=== PATIENT | female | born 1960 | race Caucasian/White ===

== ENCOUNTER → 2019-11-19 15:07 | Outpatient (BNVA) | payer OTHER, SELFPAY | PROVIDERS: Family Provider Family Medicine; PCP Family Medicine; Visit Provider Family Medicine | DX: I10 Essential (primary) hypertension (principal); M79.641 Pain in right hand; M79.642 Pain in left hand; G89.4 Chronic pain syndrome; E78.2 Mixed hyperlipidemia; J44.9 Chronic obstructive pulmonary disease, unspecified; F51.01 Primary insomnia; G60.9 Hereditary and idiopathic neuropathy, unspecified | CPT/HCPCS: 80053; 80061; 85025; 85651; 86140 ==

== ENCOUNTER 2021-03-12 13:23 | Outpatient (CLI) | payer OTHER, SELFPAY ==
--- NOTE | 2021-03-12 13:45 | MR_ITS ---
WS: [id number] MRI LUMBAR SPINE NONCONTRAST TECHNIQUE: Sagittal T1, T2 and STIR imaging. Axial T1 and T2 imaging. CLINICAL INFORMATION: ACUTE L SIDED LBP W R SIDED SCIATICA COMPARISON: None. FINDINGS: Mild lumbar curve. No acute compression. Slight anterolisthesis L4 on L5. Mild disc bulging L4-5. L1-L2: Normal. L2-L3: Mild annular bulging. Narrowing of the subarticular recess bilaterally. Moderate facet arthrop athy. Spinal canal and foramen are patent. L3-L4: Mild annular bulging. Mild central canal stenosis. Narrowing subarticular recess bilaterally. Mild right and no significant left foraminal narrowing. Moderate facet arthropathy. L4-L5: Grade 1 anterolisthesis L4 on L5. Shallow disc bulging with moderate to severe central canal s tenosis. Impingement traversing L5 nerve roots bilaterally. Moderate to advanced facet arthropathy. M oderate left and mild right foraminal narrowing. L5-S1: Minimal annular bulging. Spinal canal and foramen are patent. Moderate facet arthropathy. Atheromatous disease infrarenal abdominal aorta. Small right renal cyst MR/MR lumbar spine wo con* [id number] IMPRESSION: 1. Mild lumbar curve. No acute compression. 2. Moderate to severe spinal canal narrowing L4-5 due to disc bulging with fac et arthropathy and ligamentum flavum hypertrophy. Impingement on the traversing L5 nerve roots bilaterally. 3. Mild central canal stenosis L3-4. 4. Mild right L3-4 and moderate left L4-5 foraminal narrowing.
== END 2021-03-12 13:24 | disposition home or self-care (01) ==
PROVIDERS: PCP Family Medicine; Visit Provider Family Medicine
DX: M54.41 Lumbago with sciatica, right side (principal); M48.061 Spinal stenosis, lumbar region without neurogenic claudication
CPT/HCPCS: 72148

== ENCOUNTER 2021-03-14 16:13 | Emergency (ER) | payer OTHER, SELFPAY ==
[2021-03-14 16:29] VITALS: BP 173/82; PULSE 94; RESP 16; TEMP 36.6; O2SAT 95; BMI 33.3
[2021-03-14 17:14] VITALS: BP 147/99; PULSE 90; RESP 20; O2SAT 94
--- NOTE | 2021-03-14 17:22 | W.ED.BACK ---
HPI - Back Pain/Injury General: Chief Complaint: Extremity Problem,Nontraumatic Stated Complaint: LOWER R. ABD/BACK PAIN Time Seen by Provider: 03/14/21 17:04 Source: patient Mode of arrival: ambulatory Limitations: no limitations History of Present Illness: HPI Narrative: Patient is a 60-year-old female who presents to ED today for evaluation of lower back pain. Patient tells me pain has been present at least over the past 2 months. She has received XRs and an MRI through her PCP Dr. Mariano. She states MRI was completed on Monday and has not had a follow-up appointment following the imaging. She states pain continues and is now starting to radiate down her right lower extremity. She reports some burning to her right lower abdomen and groin. Patient denies urinary symptoms. She is not having any issues with urinary retention or bowel incontinence. She has not noticed any nausea/vomiting or changes in bowel movements. No fevers. She denies numbness, tingling, loss of sensation to her lower extremity. No color/temperature changes to the extremity. No weakness or trouble with ambulation. Pain seems to be worse with movement and improved with rest. Results of recent MRI are printed below: MR/MR lumbar spine wo con* [id number] IMPRESSION: 1. Mild lumbar curve. No acute compression. 2. Moderate to severe spinal canal narrowing L4-5 due to disc bulging with facet arthropathy and ligamentum flavum hypertrophy. Impingement on the traversing L5 nerve roots bilaterally. 3. Mild central canal stenosis L3-4. 4. Mild right L3-4 and moderate left L4-5 foraminal narrowing. MD elicited complaint: back pain Onset (ago): month(s) (approximately 2 mo ago) Timing: constant Quality: burning Location: lumbar spine and right lower back Radiation: right upper leg Exacerbating factors: movement Associated symptoms: Deny abdominal pain, chills, difficulty walking, dysuria, fatigue, fever(s), nausea, urinary urgency or vomiting Work related injury: No Review of Systems Const: Denies: fever(s), chills, body aches, fatigue or malaise Card: Denies: chest pain Resp: Denies: dyspnea GI: Denies: abdominal pain, nausea, vomiting, diarrhea or change in stool character : Denies: flank pain, difficulty voiding, dysuria, urinary frequency, urinary urgency or urinary hesitancy Musc: Reports: back pain; Denies: neck pain, extremity pain, extremity swelling, joint pain, joint swelling, joint redness, joint warmth, joint stiffness or limited range of motion Skin/Breast: Denies: rash Neuro: Denies: headache(s), numbness in extremities, weakness in extremities, sensory changes, difficulty walking or dizziness PFSH ED PFSH: Medical History Bilateral hand pain Chronic left upper quadrant pain Chronic pain syndrome Chronic right lower quadrant pain Essential (primary) hypertension Hyperlipidemia, unspecified Insomnia, unspecified Peripheral neuropathy, idiopathic Tobacco use Surgical History (Updated 11/19/19 @ 14:39 by Selina Webb MD) H/O oophorectomy S/P knee surgery LEFT S/P shoulder surgery LEFT X2 RIGHT X1 Family History (Updated 11/19/19 @ 10:03 by Nabila Velasco LPN) Mother Diabetes Anesthesia complication Hypertension Brother Diabetes Cancer LUNG AND KIDNEY Father Cancer Social History (Updated 11/19/19 @ 10:08 by Nabila Velasco LPN) Smoking and tobacco status: current every day smoker cigarettes Packs smoked per day: 1 Quit status (tobacco): not considering quitting Second hand smoke exposure: No Smoking risk assessment/counseling performed?: No Alcohol intake: never Desire information about alcohol rehabilitation?: No Counseling given: No Desire information about substance/drug rehabilitation?: No Counseling given: No Physical Exam Const: COMMON NORMALS: no acute distress, patient oriented x3, no limitations and alert GENERAL APPEARANCE: cooperative NUTRITIONAL APPEARANCE: overweight ORIENTATION/CONSCIOUSNESS: Yes awake, Yes oriented to person, Yes oriented to place and Yes oriented to time HENMT: COMMON NORMALS: normocephalic and atraumatic HEAD & SCALP: normocephalic and atraumatic Resp: COMMON NORMALS: normal respiratory effort and clear to auscultation bilaterally AUSCULTATION: clear to auscultation bilaterally Cardio: COMMON NORMALS: regular rate and regular rhythm RATE: regular rate RHYTHM: regular rhythm Back/Pelvis: THORACIC SPINE/UPPER BACK: Yes thoracic ROM normal, No thoracic spinal tenderness and No paraspinal muscle tenderness LUMBAR SPINE/LOWER BACK: Yes lumbar ROM normal, Yes pain with ROM, Yes paraspinal muscle tenderness (across lower back), No paraspinal muscle spasm and Yes straight leg raise negative bilaterally PELVIS: Yes buttocks normal and Yes sciatic notch tenderness on the right Extremity: COMMON NORMALS: normal to inspection and full ROM GENERAL: Yes normal exam except as noted Neuro: COMMON NORMALS: patient oriented x3, moves all extremities, no focal motor deficits, no sensory deficits noted and gait normal SENSORIUM/ORIENTATION: Yes alert, Yes oriented to person, Yes oriented to place and Yes oriented to time MOTOR EXAM: 5/5 motor strength present throughout Skin: COMMON NORMALS: no rashes or lesions noted GENERAL SKIN EXAM: no rashes or lesions noted Course Vital Signs: Vital signs: Vital Signs Temperature 97.9 F 03/14/21 16:29 Pulse Rate 90 03/14/21 17:14 Respiratory Rate 16 03/14/21 18:16 Blood Pressure 156/91 03/14/21 18:16 Pulse Oximetry 94 03/14/21 17:14 MDM - Back Pain/Injury MDM Narrative: Medical decision making narrative: Symptoms present for the past two months. No neurological deficits noted on exam. Recommend follow up with PCP for discussion and plan in regards to her MRI. She is on Baclofen already. States she cannot take steroids because her hazmat truck driver advised against it. Will place on diclofenac. Discussed possible physical therapy for back strengthening as well as possible referrals to pain management and possibly ortho/spine. Return to ED precautions given. Lab Data: Attestation: I reviewed the patient's lab results. Labs: Lab Results 03/14/21 Range/Units 17:34 Urine Color Straw (Yellow) Urine Appearance Clear (CLEAR) Urine pH 5 (5-7) Ur Specific Gravit y 1.015 (1.005-1.030) Urine Protein Neg (Negative) Urine Glucose (UA) Norm (Normal) Urine Ketones Negative (Negative) Urine Blood Neg (Negative) Urine Nitrate Negative (Negative) Urine Bilirubin Neg (Negative) Urine Urobilinogen Norm (Negative) mg/dL Ur Leukocyte Philomena ase Negative (Negative) Discharge Plan Discharge Patient Disposition: Home Clinical Impression: L4-L5 disc bulge Condition: Stable Prescriptions: New diclofenac sodium 50 mg tablet,delayed release (DR/EC) 50 mg PO Q12H PRN (Reason: pain) Qty: 20 RF: 0 Discontinued aspirin 325 mg Tablet 325 mg PO Q6H PRN (Reason: PAIN/HEADACHES) RF: 0 ibuprofen [Advil] 200 mg Tablet 200 - 400 mg PO Q6H PRN (Reason: Pain) RF: 0 No Action amlodipine [Norvasc] 5 mg tablet 5 mg PO DAILY RF: 0 fenofibrate nanocrystallized 145 mg tablet 145 mg PO DAILY RF: 0 amitriptyline 50 mg tablet 100 mg PO DAILY RF: 0 baclofen 20 mg tablet 40 mg PO DAILY RF: 0 zolpidem 10 mg tablet 10 mg PO BEDTIME RF: 0 hydrochlorothiazide 25 mg tablet 25 mg PO DAILY RF: 0 losartan 100 mg tablet 100 mg PO DAILY RF: 0 Discharge Orders: Discharge ED (Routine); Ordered 03/14/21 Ordered By: Maryana Meeks Referrals: Tracey Mariano, [Primary Care Provider] - Activity Restrictions/Additional Instructions: Continue taking the Baclofen as prescribed. I have written you for a prescription for anti-inflammatory medications. Do not take this medication with other [id number] medication such as Advil/Motrin/Ibuprofen, Aleve/Naprosyn, or Aspirin. Please contact your primary care provider to go over results of your MRI. We have discussed options such as physical therapy or a referral to pain management or evaluation by Dr. Liu. Coding Level of Care Code ED Tennis Racket Repairer for Chg Fwd Exam Comprehensive
[2021-03-14 17:41] LABS: Add Urine Microscopic? NO; Charge for UA Resulting for Rev
[2021-03-14 17:46] LABS: Bilirubin Urine Neg (Negative); Blood Urine Neg (Negative); Glucose Urine UA Norm (Normal); Ketones Urine Negative (Negative); Leukocyte Esterase Urine Negative (Negative); Nitrate Urine Negative (Negative); Protein Urine Neg (Negative); Specific Gravity, Urine 1.015 (1.005-1.030); Urine Appearance Clear (CLEAR); Urine Color Straw (Yellow); Urobilinogen Urine Norm (Negative); pH Urine 5 (5-7)
[2021-03-14 18:16] VITALS: BP 156/91; RESP 16
== END 2021-03-14 18:22 | disposition home or self-care (01) ==
PROVIDERS: Emergency Provider Physician Assistant; PCP Family Medicine
DX: M51.26 Other intervertebral disc displacement, lumbar region (principal); I10 Essential (primary) hypertension; E78.5 Hyperlipidemia, unspecified; F17.210 Nicotine dependence, cigarettes, uncomplicated
CPT/HCPCS: 81003; 99282

== ENCOUNTER 2021-07-29 12:48 | Outpatient (CLI) | payer OTHER, SELFPAY ==
--- NOTE | 2021-07-29 13:03 | MM_ITS ---
WS: [id number] BILATERAL SCREENING DIGITAL MAMMOGRAM WITH CAD HISTORY: Screening exam. COMPARISON: 10/30/2019 Bilateral CC and MLO views submitted. Computer aided detection analyzed. Breast composition: There are scattered areas of fibroglandular density. No suspicious masses, microc alcifications or architectural distortion. Benign bilateral scattered calcifications. MM/[place] [id number] IMPRESSION: BI-RADS: 2-Benign FOLLOW UP: 1 Year Follow-up
== END 2021-07-29 12:49 | disposition home or self-care (01) ==
LOC: RADSHAW 12:53
PROVIDERS: PCP Family Medicine; Visit Provider Registered Nurse
DX: Z12.31 Encounter for screening mammogram for malignant neoplasm of breast (principal)
CPT/HCPCS: 77067

== ENCOUNTER → 2021-08-13 10:27 | Outpatient (BNVA) | payer OTHER, SELFPAY | PROVIDERS: PCP Family Medicine; Referring Provider Emergency Medicine; Visit Provider Podiatrist Foot & Ankle Surgery | DX: M79.673 Pain in unspecified foot (principal); S92.343D Displaced fracture of fourth metatarsal bone, unspecified foot, subsequent encounter for fracture with routine healing; X58.XXXD Exposure to other specified factors, subsequent encounter | CPT/HCPCS: 73620; 73630 ==

== ENCOUNTER 2022-01-22 02:38 | Inpatient (IN) | payer BC, SELFPAY ==
[2022-01-22] VITALS (14 sets, daily range): BP systolic 132–218; BP diastolic 73–114; PULSE 78–107; RESP 16–21; TEMP 36.5–37.1; O2SAT 92–98; BMI 33.3
--- NOTE | 2022-01-22 03:10 | CTR_ITS ---
PROCEDURE INFORMATION: Exam: CT Head Without Contrast Exam date and time: 01/22/2022 3:10 AM Age: 61 years old Clinical indication: Altered mental status/memory loss; Patient HX: AMS. Patient's states she is acting more and more confused over past couple of days. Patient appears confused and making contradictory statements. ; Additional info: Symptoms of acute stroke TECHNIQUE: Imaging protocol: Computed tomography of the head without contrast. Radiation optimization: All CT scans at this facility use at least one of these dose optimization techniques: automated exposure control; mA and/or kV adjustment per patient size (includes targeted exams where dose is matched to clinical indication); or iterative reconstruction. COMPARISON: CR Cervical Spine AP/Lat* [id number] 10/30/2019 11:52 AM RADIATION DOSE METRICS: Total DLP (mGy-cm): 1658.68 FINDINGS: Brain: Normal. No hemorrhage. Unremarkable white matter. No mass effect. Cerebral ventricles: No ventriculomegaly. Paranasal sinuses: Visualized sinuses are unremarkable. No fluid levels. Mastoid air cells: Visualized mastoid air cells are well aerated. Vasculature: Severe calcified intracranial atherosclerotic vessel disease. Bones/joints: Unremarkable. No acute fracture. Soft tissues: Unremarkable. CT/CT head wo con* [id number] IMPRESSION: No acute intracranial findings.
--- NOTE | 2022-01-22 03:10 | ECG_ITS ---
[facility] Test Date: 2022-01-22 Pat Name: Katia Knott Department: Room: Gender: Female Administrative Director: : 1960 Requested By: José Antonio Schroeder Order Number: [id number] Stacy MD: Adolfo Belcher M.D. Measurements Intervals [place] Rate: 87 P: 59 KS: 138 QRS: 30 QRSD: 99 T: 50 QT: 353 QTc: 427 Interpretive Statements SINUS RHYTHM NONSPECIFIC T-WAVE ABNORMALITY Compared to ECG 08/04/2019 18:05:18 No significant changes Electronically Signed On 01-23-2022 15:46:31 CDT by Adolfo Belcher M.D. [email or web address] [id number]
--- NOTE | 2022-01-22 03:12 | XRR_ITS ---
PROCEDURE INFORMATION: Exam: XR Chest Exam date and time: 01/22/2022 3:12 AM Age: 61 years old Clinical indication: Patient HX: AMS. Patient states patient acting very confused past few days. TECHNIQUE: Imaging protocol: XR of the chest. Views: 1 view. COMPARISON: CR Chest 1 [place] [id number] 08/04/2019 7:19 PM FINDINGS: Lungs: Stable left discoid atelectasis and/or scarring. Pleural spaces: Unremarkable. No pleural effusion. No pneumothorax. Heart/Mediastinum: Unremarkable. No cardiomegaly. Bones/joints: Unremarkable. XR/XR chest 1V portable [id number] IMPRESSION: No acute findings.
[2022-01-22 03:21] LABS: Basophils % 0.4 %; Eosinophils # 0.1 10^3/uL (0.0-0.8); Eosinophils % 1.8 %; Hematocrit 43.1 % (37.0-47.0); Hemoglobin 14.1 g/dL (11.5-15.3); Lymphocytes # 1.7 10^3/uL (0.8-4.8); Lymphocytes % 22.9 %; Mean Corpuscular HGB Conc 32.7 g/dL (30.0-36.0); Mean Corpuscular Volume 88.7 fl (81-99); Monocytes # 0.5 10^3/uL (0.2-0.9); Monocytes % 7.1 %; Neutrophils # 4.96 10^3/uL (1.8-7.7); Neutrophils % 67.4 %; Nucleated Red Blood Cells % 0 %; Platelet Count 315 10^3/cmm (130-400); Red Blood Count 4.86 10^6/uL (4.1-5.3); Red Cell Distribution Width 12.7 % (12.1-15.1); White Blood Count 7.4 10^3/uL (4.0-10.0)
[2022-01-22 03:37] LABS: INR 0.97 (0.8-1.2); Partial Thromboplastin Time 26.3 SECONDS (23.9-36.7)
[2022-01-22 03:42] LABS: Alanine Aminotransferase 21 U/L (0-33); Albumin Level 4.7 g/dL (3.5-5.2); Alkaline Phosphatase 63 IU/L (35-105); Blood Urea Nitrogen 18 mg/dL (8-23); Calcium 9.1 mg/dL (8.5-10.5); Carbon Dioxide 27 mmol/L (22-29); Chloride 95 mmol/L (98-107); Globulin 3.4 g/dL (1.3-4.6); Glomerular Filtration Rate 72.7 mL/min (90-130); Glucose 176 mg/dL (65-115); Osmolality Calculated 284 mOsm/kg (285-295); Sodium 134 mmol/L (136-145); Total Bilirubin 0.2 mg/dL (0.15-1.2); Total Protein 8.1 g/dL (6.6-8.7)
[2022-01-22 03:44] LABS: Lactate (Lactic Acid level) 0.9 mmol/L (0.5-2.2)
[2022-01-22 03:46] LABS: Alcohol Level < 10 mg/dL (0-10); Anion Gap 16.4 (5-19); Aspartate Amino Transferase 17 U/L (0-32); Potassium 4.4 mmol/L (3.5-5.1)
--- NOTE | 2022-01-22 03:49 | W.ED.AMS ---
HPI - Altered Mental Status General: Chief Complaint: Altered Mental Status Stated Complaint: Possible Stoke\Not making Sense Time Seen by Provider: 01/22/22 02:56 History of Present Illness: 61-year-old female with a history of chronic back pain, peripheral neuropathy. She also has a history of peripheral vascular disease. She presents with at least 36 hours of confusion symptoms. state she was acting normally Monday night, and seemed normal morning but by the time he got home night, somewhere around 36 hours ago she seemed altered. She has had a history of this a couple of times, after taking too much medication. He thought that this was the case, but when symptoms continued into Monday and Monday night, decided she may need to be evaluated. She responds and answers simple questions. She is having trouble with language. She seems a bit weak, but not focally on one side. She was able to walk into the ER with minimal assistance. The patient herself is an unreliable historian at this point. does say that the patient recently started a new prescription sleep aid (Ambien) and she seems to have taken a months worth in 10 days, as the bottle is empty. MD complaint: altered mental status and confusion Onset (ago): hour(s) Timing confirmed by: spouse Severity: moderate Consistency of symptoms: Constant Context: change in medication Associated symptoms: Reports other Review of Systems General: Reports: ROS unobtainable due to mental status and Other (Hx taken from , and the patient at times) Const: Denies: fever(s) Eyes: Reports: change in vision Card: Denies: chest pain Resp: Denies: productive cough or non-productive cough GI: Denies: abdominal pain or vomiting Musc: Reports: back pain Neuro: Denies: headache(s) Psych: Reports: anxiety PFSH ED PFSH: Medical History Bilateral hand pain Chronic left upper quadrant pain Chronic pain syndrome Chronic right lower quadrant pain Essential (primary) hypertension Hyperlipidemia, unspecified Insomnia, unspecified Peripheral neuropathy, idiopathic PVD (peripheral vascular disease) Smoking Tobacco use Surgical History H/O oophorectomy S/P knee surgery LEFT S/P shoulder surgery LEFT X2 RIGHT X1 Family History Mother Diabetes Anesthesia complication Hypertension Brother Diabetes Cancer LUNG AND KIDNEY Father Cancer Social History (Updated 01/22/22 @ 04:06 by José Antonio Quintana DO) Quit status (tobacco): considering quitting Second hand smoke exposure: No Smoking risk assessment/counseling performed?: No Alcohol intake: never Desire information about alcohol rehabilitation?: No Counseling given: No Desire information about substance/drug rehabilitation?: No Counseling given: No Physical Exam Const: COMMON NORMALS: alert GENERAL APPEARANCE: well kempt, in distress, anxious and ill appearing NUTRITIONAL APPEARANCE: overweight ORIENTATION/CONSCIOUSNESS: Yes awake, Yes oriented to person and Yes confused; not oriented to place and not oriented to time HENMT: COMMON NORMALS: normocephalic and atraumatic HEAD & SCALP: normocephalic and atraumatic FACE & SINUS: normal facial exam Eye: COMMON NORMALS: Equal, round and reactive pupils present and EOMs intact bilaterally VISUAL ACUITY: Yes acuity normal PUPIL: Yes Equal, round and reactive pupils present Chest: COMMONS NORMALS: normal inspection of the chest Resp: COMMON NORMALS: normal respiratory effort, No use of accessory muscles and clear to auscultation bilaterally AUSCULTATION: clear to auscultation bilaterally Cardio: COMMON NORMALS: regular rate and regular rhythm RATE: regular rate RHYTHM: regular rhythm GI: COMMON NORMALS: Normal to inspection, nondistended, normoactive bowel sounds present Neuro: DOMINGUEZ COMA SCALE: document GCS findings [place] coma scale eye opening: Spontaneous Dominguez coma scale verbal response: Confused Dominguez coma scale motor response: Obey commands Dominguez coma scale total score: 14 SENSORIUM/ORIENTATION: Yes alert, Yes oriented to person, No oriented to place and No oriented to time CRANIAL NERVES: Yes CN normal except as noted COORDINATION/BALANCE: somlcw-wu-crrn test normal MOTOR EXAM: Pronator motor function not present COORDINATION: omhtal-xm-lbvn test normal Psych: COMMON NORMALS: cooperative (only partially) APPEARANCE: Yes well kempt Course Consultations: Consultation #1: laurie Time: 04:27 Vital Signs: Vital signs: Vital Signs Temperature 97.7 F 01/22/22 02:45 Pulse Rate 79 01/22/22 04:39 Respiratory Rate 18 01/22/22 04:39 Blood Pressure 178/98 01/22/22 04:39 Pulse Oximetry 98 01/22/22 04:39 MDM - Altered Mental Status Medical Decision Making 61-year-old female with significant altered mental status. She is following commands at this point, but is still not able to give a history. Her neurological exam is completely nonfocal in terms of a localized stroke, although she exhibits significant expressive aphasia. Her laboratory is essentially benign. Her urinalysis does not show urinary tract infection. Tox screen is negative. Alcohol is negative. Head CT is nonacute. At the top of the differential would be zolpidem overdose, whether unintentional or intentional versus other metabolic encephalopathy versus acute stroke not showing up on CT. Patient is not a candidate for TPA given time of onset. She was extremely hypertensive on arrival, which is improving, after IV labetalol. Spoke with the hospitalist. She will be observed, given IV fluid hydration, and MRI will be scheduled for later today Lab Data : 01/22/22 03:15 01/22/22 03:[address] 01/22/22 03:10 IMPRESSION: No acute intracranial findings. Chest X-Ray 01/22/22 03:12 IMPRESSION: No acute findings. Laboratory Results WBC 7.4 10^3/uL (4.0-10.0) 01/22/22 03:15 RBC 4.86 10^6/uL (4.1-5.3) 01/22/22 03:15 Hgb 14.1 g/dL (11.5-15.3) 01/22/22 03:15 Hct 43.1 % (37.0-47.0) 01/22/22 03:15 MCV 88.7 fl (81-99) 01/22/22 03:15 MCH 29.0 pg (28.0-34.0) 01/22/22 03:15 MCHC 32.7 g/dL (30.0-36.0) 01/22/22 03:15 RDW 12.7 % (12.1-15.1) 01/22/22 03:15 Plt Count 315 10^3/cmm (130-400) 01/22/22 03:15 MPV 10.0 fL (7.4-10.4) 01/22/22 03:15 Neut % (Auto) 67.4 % 01/22/22 03:15 Lymph % (Auto) 22.9 % 01/22/22 03:15 [place] % (Auto) 7.1 % 01/22/22 03:15 Eos % (Auto) 1.8 % 01/22/22 03:15 Baso % (Auto) 0.4 % 01/22/22 03:15 Neut # (Auto) 4.96 10^3/uL (1.8-7.7) 01/22/22 03:15 Lymph # (Auto) 1.7 10^3/uL (0.8-4.8) 01/22/22 03:15 [place] # (Auto) 0.5 10^3/uL (0.2-0.9) 01/22/22 03:15 Eos # (Auto) 0.1 10^3/uL (0.0-0.8) 01/22/22 03:15 Baso # (Auto) 0.0 10^3/uL (0.0-0.1) 01/22/22 03:15 Nucleated RBC % (auto) 0 % 01/22/22 03:15 Nucleated RBCs # 0.0 /100WBC 01/22/22 03:15 PT 13.20 SECONDS (12.1-14.9) 01/22/22 03:15 INR 0.97 (0.8-1.2) 01/22/22 03:15 APTT 26.3 SECONDS (23.9-36.7) 01/22/22 03:15 Sodium 134 mmol/L (136-145) L 01/22/22 03:15 Potassium 4.4 mmol/L (3.5-5.1) 01/22/22 03:15 Chloride 95 mmol/L (98-107) L 01/22/22 03:15 Carbon Dioxide 27 mmol/L (22-29) 01/22/22 03:15 Anion Gap 16.4 (5-19) 01/22/22 03:15 BUN 18 mg/dL (8-23) 01/22/22 03:15 Creatinine 0.8 mg/dL (0.5-0.9) 01/22/22 03:15 GFR Calculation 72.7 mL/min (90-130) L 01/22/22 03:15 Glucose 176 mg/dL (65-115) H 01/22/22 03:15 Calculated Osmolality 284 mOsm/kg (285-295) L 01/22/22 03:15 Lactate 0.9 mmol/L (0.5-2.2) 01/22/22 03:15 Calcium 9.1 mg/dL (8.5-10.5) 01/22/22 03:15 Total Bilirubin 0.2 mg/dL (0.15-1.2) 01/22/22 03:15 AST 17 U/L (0-32) 01/22/22 03:15 ALT 21 U/L (0-33) 01/22/22 03:15 Alkaline Phosphatase 63 IU/L (35-105) 01/22/22 03:15 Total Protein 8.1 g/dL (6.6-8.7) 01/22/22 03:15 Albumin 4.7 g/dL (3.5-5.2) 01/22/22 03:15 Globulin 3.4 g/dL (1.3-4.6) 01/22/22 03:15 Urine Color Yellow (Yellow) 01/22/22 03:40 Urine Appearance Clear (CLEAR) 01/22/22 03:40 Urine pH 6.5 (5-7) 01/22/22 03:40 Ur Specific [place] 1.010 (1.005-1.030) 01/22/22 03:40 Urine Protein Neg (Negative) 01/22/22 03:40 Urine Glucose (UA) Norm (Normal) 01/22/22 03:40 Urine Ketones Negative (Negative) 01/22/22 03:40 Urine Blood Neg (Negative) 01/22/22 03:40 Urine Nitrate Negative (Negative) 01/22/22 03:40 Urine Bilirubin Neg (Negative) 01/22/22 03:40 Urine Urobilinogen Norm mg/dL (Negative) 01/22/22 03:40 Ur Leukocyte Esterase Negative (Negative) 01/22/22 03:40 Urine Opiates Screen Negative ng/mL (Negative) 01/22/22 03:40 Ur Barbiturates Screen Negative ng/mL (Negative) 01/22/22 03:40 Ur Phencyclidine Scrn Negative ng/mL (Negative) 01/22/22 03:40 Ur Amphetamines Screen Negative ng/mL (Negative) 01/22/22 03:40 U Benzodiazepines Scrn Negative ng/mL (Negative) 01/22/22 03:40 Urine Cocaine Screen Negative ng/mL (Negative) 01/22/22 03:40 U Marijuana (THC) Screen Negative ng/mL (Negative) 01/22/22 03:40 Ethyl Alcohol < 10 mg/dL (0-10) 01/22/22 03:15 Critical Care Time Critical Care Time: Critical Care Time: Yes Total Critical Care Time: 36 Attestation: This case had a high probability of a clinically significant, sudden, or life threatening deterioration of this patient's condition which required my full and direct attention, intervention and personal management. Time is independent of any procedures performed. Discharge Plan Discharge Patient Disposition: Placed in Observation Admit Provider: Zuly Ernandez Clinical Impression: Altered mental status Coding Level of Care Code ED Wringer Machine Operator for Chg Fwd Exam Comprehensive
[2022-01-22 04:00] LABS: Add Urine Microscopic? NO; Charge for UA Resulting for Rev
[2022-01-22] MEDS: labetalol 5 mg/mL SDV 20mL 20 MG IVP (04:05)
[2022-01-22] MEDS: sodium chloride 0.9% 1,000 ML 999 ML IV (04:05)
[2022-01-22 04:06] LABS: Blood Urine Neg (Negative); Glucose Urine UA Norm (Normal); Ketones Urine Negative (Negative); Protein Urine Neg (Negative); Urine Appearance Clear (CLEAR); Urine Color Yellow (Yellow); pH Urine 6.5 (5-7)
[2022-01-22 04:07] LABS: Bilirubin Urine Neg (Negative); Leukocyte Esterase Urine Negative (Negative); Nitrate Urine Negative (Negative); Urobilinogen Urine Norm (Negative)
[2022-01-22 04:11] LABS: Amphetamines Screen Urine Negative (Negative); Barbiturates Screen Urine Negative (Negative); Benzodiazepines Screen Urine Negative (Negative); Cocaine Screen Urine Negative (Negative); Opiate Screen Urine Negative (Negative); PCP Screen Urine Negative (Negative); THC Screen Urine Negative (Negative)
--- NOTE | 2022-01-22 06:21 | P.HP_ITS ---
Providers/Chief Complaint Admitting Physician: uZly Ernandez MD Primary Care Provider: Tracey Mariano DO Chief Complaint: Possible Stroke\Not making Sense History of Present Illness History obtained mainly by talkin to ERP. Patient is unreliable at this point in time due to lethargy and disorientation. Katia Knott is a 61 year old female with chronic back pain, peripheral neuopathy, HTN last seen normal on Monday evening (today is monday). When her returned from work on night, he noticed that she was acting confused and disoriented. Initially attributed this to baclofen but then presented to ER when symptoms continued to persist. She has additionally recently started AMbien, bottle for a month's prescription was reportedly found empty in 10 days. Today she c/o maliase, fatigue. She responds yes or no to simple questions but content of spee ch not entirely clear. She was noted to be ambulating in the ER earlier today. No known recent fever, chills, cough, expectoration BP in the ER noted upon arrival to be 218/104mmhg. Given labetalol IVP. U tox negative. no past h/o seizures. Review of Systems General: Reports: ROS unobtainable due to medical condition Medications/Allergies Home Medications Medication Instructions Recorded Confirmed Last Taken Type amitriptyline 50 mg tablet 100 mg PO DAILY tab 11/19/19 08/13/21 Unknown History amlodipine 5 mg tablet (Norvasc) 5 mg PO DAILY tab 11/19/19 08/13/21 03/13/21 History baclofen 20 mg tablet 40 mg PO DAILY 11/19/19 08/13/21 03/13/21 History fenofibrate nanocrystallized 145 145 mg PO DAILY tab 11/19/19 08/13/21 03/13/21 History mg tablet diclofenac sodium 50 mg 50 mg PO Q12H PRN #20 tab 03/14/21 08/13/21 Unknown Rx tablet,delayed release hydrochlorothiazide 25 mg tablet 25 mg PO DAILY 03/14/21 08/13/21 03/13/21 History losartan 100 mg tablet 100 mg PO DAILY 03/14/21 08/13/21 03/13/21 History doxycycline hyclate 100 mg tablet 100 mg PO BID 10 Days #20 tab 08/06/21 08/13/21 Unknown Rx terbinafine HCl 250 mg tablet 250 mg PO DAILY #14 tab 08/13/21 08/13/21 Unknown Rx triamcinolone acetonide 0.1 % 1 applic TOPICAL BID #30 g 08/13/21 08/13/21 Unknown Rx topical cream Allergies Allergy/AdvReac Type Severity Reaction Status Date / Time No Known Allergies Allergy Verified 08/13/21 10:20 PFSH Acute PFSH: Medical History Bilateral hand pain Chronic left upper quadrant pain Chronic pain syndrome Chronic right lower quadrant pain Essential (primary) hypertension Hyperlipidemia, unspecified Insomnia, unspecified Peripheral neuropathy, idiopathic PVD (peripheral vascular disease) Smoking Tobacco use Surgical History H/O oophorectomy S/P knee surgery LEFT S/P shoulder surgery LEFT X2 RIGHT X1 Family History Mother Diabetes Anesthesia complication Hypertension Brother Diabetes Cancer LUNG AND KIDNEY Father Cancer Social History Quit status (tobacco): considering quitting Second hand smoke exposure: No Smoking risk assessment/counseling performed?: No Alcohol intake: never Desire information about alcohol rehabilitation?: No Counseling given: No Desire information about substance/drug rehabilitation?: No Counseling given: No Vitals/I&O/Wt Last Vital Signs Temp 98.7 F 01/22/22 05:30 Pulse 89 01/22/22 05:30 Resp 18 01/22/22 05:30 BP 195/91 01/22/22 05:30 Pulse Ox 96 01/22/22 05:30 01/21/22 01/21/22 01/22/22 14:59 22:59 06:59 Intake Total 1000 / 1000 Balance 1000 / 1000 Weight last 48 hrs Weight 90.718 kg Physical Exam Narrative: GEN: Awake, orineted x 1 , unable to state date or time CVS: S1S2 N RS: CTA B/L all areas Abd: Soft, nt/nd , bs+ EQUITY RESEARCH ASSOCIATE: no focal motor neuro deficits , follows simple commands Data : 01/22/22 03:15 01/22/22 03:15 Other Labs: Radiology Impressions Head CT 01/22/22 03:10 IMPRESSION: No acute intracranial findings. Chest X-Ray 01/22/22 03:12 IMPRESSION: No acute findings. Laboratory Results WBC 7.4 10^3/uL (4.0-10.0) 01/22/22 03:15 RBC 4.86 10^6/uL (4.1-5.3) 01/22/22 03:15 Hgb 14.1 g/dL (11.5-15.3) 01/22/22 03:15 Hct 43.1 % (37.0-47.0) 01/22/22 03:15 MCV 88.7 fl (81-99) 01/22/22 03:15 MCH 29.0 pg (28.0-34.0) 01/22/22 03:15 MCHC 32.7 g/dL (30.0-36.0) 01/22/22 03:15 RDW 12.7 % (12.1-15.1) 01/22/22 03:15 Plt Count 315 10^3/cmm (130-400) 01/22/22 03:15 MPV 10.0 fL (7.4-10.4) 01/22/22 03:15 Neut % (Auto) 67.4 % 01/22/22 03:15 Lymph % (Auto) 22.9 % 01/22/22 03:15 [place] % (Auto) 7.1 % 01/22/22 03:15 Eos % (Auto) 1.8 % 01/22/22 03:15 Baso % (Auto) 0.4 % 01/22/22 03:15 Neut # (Auto) 4.96 10^3/uL (1.8-7.7) 01/22/22 03:15 Lymph # (Auto) 1.7 10^3/uL (0.8-4.8) 01/22/22 03:15 Benzie # (Auto) 0.5 10^3/uL (0.2-0.9) 01/22/22 03:15 Eos # (Auto) 0.1 10^3/uL (0.0-0.8) 01/22/22 03:15 Baso # (Auto) 0.0 10^3/uL (0.0-0.1) 01/22/22 03:15 Nucleated RBC % (auto) 0 % 01/22/22 03:15 Nucleated RBCs # 0.0 /100WBC 01/22/22 03:15 PT 13.20 SECONDS (12.1-14.9) 01/22/22 03:15 INR 0.97 (0.8-1.2) 01/22/22 03:15 APTT 26.3 SECONDS (23.9-36.7) 01/22/22 03:15 Sodium 134 mmol/L (136-145) L 01/22/22 03:15 Potassium 4.4 mmol/L (3.5-5.1) 01/22/22 03:15 Chloride 95 mmol/L (98-107) L 01/22/22 03:15 Carbon Dioxide 27 mmol/L (22-29) 01/22/22 03:15 Anion Gap 16.4 (5-19) 01/22/22 03:15 BUN 18 mg/dL (8-23) 01/22/22 03:15 Creatinine 0.8 mg/dL (0.5-0.9) 01/22/22 03:15 GFR Calculation 72.7 mL/min (90-130) L 01/22/22 03:15 Glucose 176 mg/dL (65-115) H 01/22/22 03:15 Calculated Osmolality 284 mOsm/kg (285-295) L 01/22/22 03:15 Lactate 0.9 mmol/L (0.5-2.2) 01/22/22 03:15 Calcium 9.1 mg/dL (8.5-10.5) 01/22/22 03:15 Total Bilirubin 0.2 mg/dL (0.15-1.2) 01/22/22 03:15 AST 17 U/L (0-32) 01/22/22 03:15 ALT 21 U/L (0-33) 01/22/22 03:15 Alkaline Phosphatase 63 IU/L (35-105) 01/22/22 03:15 Total Protein 8.1 g/dL (6.6-8.7) 01/22/22 03:15 Albumin 4.7 g/dL (3.5-5.2) 01/22/22 03:15 Globulin 3.4 g/dL (1.3-4.6) 01/22/22 03:15 TSH 1.08 uIU/mL (0.27-4.20) 01/22/22 03:15 Urine Color Yellow (Yellow) 01/22/22 03:40 Urine Appearance Clear (CLEAR) 01/22/22 03:40 Urine pH 6.5 (5-7) 01/22/22 03:40 Ur Specific [place] 1.010 (1.005-1.030) 01/22/22 03:40 Urine Protein Neg (Negative) 01/22/22 03:40 Urine Glucose (UA) Norm (Normal) 01/22/22 03:40 Urine Ketones Negative (Negative) 01/22/22 03:40 Urine Blood Neg (Negative) 01/22/22 03:40 Urine Nitrate Negative (Negative) 01/22/22 03:40 Urine Bilirubin Neg (Negative) 01/22/22 03:40 Urine Urobilinogen Norm mg/dL (Negative) 01/22/22 03:40 Ur Leukocyte Esterase Negative (Negative) 01/22/22 03:40 Urine Opiates Screen Negative ng/mL (Negative) 01/22/22 03:40 Ur Barbiturates Screen Negative ng/mL (Negative) 01/22/22 03:40 Ur Phencyclidine Scrn Negative ng/mL (Negative) 01/22/22 03:40 Ur Amphetamines Screen Negative ng/mL (Negative) 01/22/22 03:40 U Benzodiazepines Scrn Negative ng/mL (Negative) 01/22/22 03:40 Urine Cocaine Screen Negative ng/mL (Negative) 01/22/22 03:40 U Marijuana (THC) Screen Negative ng/mL (Negative) 01/22/22 03:40 Ethyl Alcohol < 10 mg/dL (0-10) 01/22/22 03:15 A&P Assessment and plan (1) Altered mental status: Altered mental status manifesting as confusion, last seen normal on Monday evening (today is monday) CT head negative for acute events BP noted to elevated in the 200s range, still with 190 systolic after labetalol Chief differentials include CVA vs PRES vs polypharmacy Hold amytryptylline, baclofen, terbainafine (due to potential drug interactions) and any further doses of benzodiazepenes CXR, UA without any acute findings. MRI brain to evaluate for PRES vs CVA Hydralazine 5mg IVP now, increase amlodipine to 10mg po daily NPO except meds until swallow eval can be performed. Status: Acute (2) Uncontrolled hypertension: Status: Acute Attestations Medical Necessity Statement*: >2midnight admission anticipated for evaluation and management of AMS, close monitoring of mental status, hypertensive urgency Coding Level of Care Code Acute Dolphin Trainer for g Fwd Diagnoses Altered mental status R41.82 Uncontrolled hypertension I10
[2022-01-22 06:59] LABS: Thyroid Stimulating Hormone 1.08 uIU/mL (0.27-4.20)
[2022-01-22] MEDS: hyDRALAzine 20 mg/mL INJ 1 mL 5 MG IVP (07:40)
[2022-01-22] MEDS: amlodipine 10 mg Tablet PO (07:41)
[2022-01-22] MEDS: losartan 50 mg Tablet 100 MG PO (10:28)
[2022-01-22] MEDS: hydroCHLOROthiazide 25 mg Tablet PO (10:28)
[2022-01-22] MEDS: fenofibrate 145 mg Tablet PO (10:28)
[2022-01-22 11:22] LABS: SARS Covid-2 Antigen Negative (Negative)
--- NOTE | 2022-01-22 14:20 | PC.NURSE ---
Patient repeatedly yelling Diane . Nurse asked patient who Diane is and if she wanted to talked to here. Patient's daughter Diane called and is speaking to patient over the phone.
[2022-01-22] MEDS: metoprolol tartrate 50 mg Tablet PO (21:26)
--- NOTE | 2022-01-22 21:36 | PC.NURSE ---
NEURO NOTE Is alert but confused. Pleasant and cooperative. Was having a conversation with her and then she just went completely off subject and began talking about Agapito and how much she loves him. Asking if we've seen him here. Has been reading Bible and tells me everyone just needs to give everything they own away because all they need it Agapito. Told nurses aide that she was pregant with Agapito.
[2022-01-23] VITALS (7 sets, daily range): BP systolic 101–156; BP diastolic 68–89; PULSE 78–98; RESP 16–18; TEMP 36.8–37; O2SAT 94–97
[2022-01-23 05:50] LABS: Basophils % 0.4 %; Eosinophils # 0.2 10^3/uL (0.0-0.8); Eosinophils % 2.4 %; Hematocrit 42.9 % (37.0-47.0); Hemoglobin 13.8 g/dL (11.5-15.3); Lymphocytes # 2.3 10^3/uL (0.8-4.8); Lymphocytes % 25.9 %; Mean Corpuscular HGB Conc 32.2 g/dL (30.0-36.0); Mean Corpuscular Hemoglobin 29.4 pg (28.0-34.0); Mean Corpuscular Volume 91.3 fl (81-99); Mean Platelet Volume 9.9 fL (7.4-10.4); Monocytes # 0.8 10^3/uL (0.2-0.9); Monocytes % 8.9 %; Neutrophils # 5.54 10^3/uL (1.8-7.7); Neutrophils % 61.8 %; Nucleated Red Blood Cells % 0 %; Platelet Count 314 10^3/cmm (130-400); Red Cell Distribution Width 12.9 % (12.1-15.1)
[2022-01-23 06:14] LABS: Alanine Aminotransferase 16 U/L (0-33); Albumin Level 3.9 g/dL (3.5-5.2); Alkaline Phosphatase 56 IU/L (35-105); Anion Gap 14.2 (5-19); Aspartate Amino Transferase 17 U/L (0-32); Blood Urea Nitrogen 19 mg/dL (8-23); Calcium 10.3 mg/dL (8.5-10.5); Carbon Dioxide 24 mmol/L (22-29); Chloride 101 mmol/L (98-107); Globulin 4.3 g/dL (1.3-4.6); Glomerular Filtration Rate 63.4 mL/min (90-130); Glucose 149 mg/dL (65-115); Osmolality Calculated 285 mOsm/kg (285-295); Potassium 4.2 mmol/L (3.5-5.1); Sodium 135 mmol/L (136-145); Total Bilirubin 0.3 mg/dL (0.15-1.2); Total Protein 8.2 g/dL (6.6-8.7)
[2022-01-23] MEDS: losartan 50 mg Tablet 100 MG PO (08:30)
[2022-01-23] MEDS: amlodipine 10 mg Tablet PO (08:30)
[2022-01-23] MEDS: metoprolol tartrate 50 mg Tablet PO ×2 (08:30→20:44)
[2022-01-23] MEDS: hydroCHLOROthiazide 25 mg Tablet PO (08:30)
[2022-01-23] MEDS: fenofibrate 145 mg Tablet PO (09:19)
--- NOTE | 2022-01-23 13:37 | P.PN_ITS ---
Subjective Subjective: No events overnight. Examination seen sitting up at bedside. Patient is a lot more awake, alert. Not emotional. Denies any nausea vomiting, headache. States he is feeling a lot better. On asking she states feels safe at home with her family and . Vitals/I&O/Wt Last Vital Signs Temp 98.2 F 01/23/22 08:00 Pulse 85 01/23/22 11:30 Resp 18 01/23/22 11:30 BP 101/68 01/23/22 11:30 Pulse Ox 94 01/23/22 11:30 01/22/22 01/23/22 01/23/22 21:59 06:59 14:59 Intake Total 720 / 720 Balance 720 / 720 Weight last 48 hrs Weight 90.718 kg Physical Exam Narrative: General: No acute distress, AO x3 HEENT: PERRLA, pupils bilaterally equal and reactive Chest: Normal vesicular breath sounds, no added sounds, equal good air entry bilaterally CVS: S1-S2 regular, no murmurs, no tachycardia, no gallops, no rubs Abdomen: Soft, nontender, no organomegaly, bowel sounds present Neuro: No focal deficits, no facial deformity, AO x3, power 5/5 in all limbs Data : 01/23/22 05:25 01/23/22 05:25 A&P Assessment and plan (1) Altered mental status: Most likley 2/2 polypharmacy vs PRESS syndrome. Multiplle meds at home including amitriptiline, baclofen, ambien. C/w holding Ambien. Continue with holding other medication including amitriptyline and baclofen. For PRESS. Monitor BP MRI pending. No signs of sepsis or infection. UA clear. TSH normal. Check vitamin B12 folate. CT head, CTA head and neck negative on admission. Status: Acute (2) Uncontrolled hypertension: Goal BP less than 140/90 mmhg C/w Home dose of Losartan, HTCZ. Increase dose of Amlo at 10 mg PO QD, metoprolol 50 mg BID Status: Acute Plan Regular diet. Heparin for DVT prophylaxis. Pepcid for PUD prophylaxis. Attestations Medical Necessity Statement*: Requires further hospitalization for further e valuation and management of altered mental status secondary to polypharmacy versus press syndrome, monitoring blood pressure Time Spent in Patient Care: Greater than 35 minutes Coding Level of Care Code Acute Career And Guidance Counselor for Lázaro De La Fuente Diagnoses Altered mental status R41.82 Uncontrolled hypertension I10
[2022-01-23] MEDS: heparin 5,000 unit/mL INJ 1 mL 5000 UNIT SUBCUT (16:11)
[2022-01-23] MEDS: famotidine 20 mg Tablet PO (16:11)
[2022-01-24] VITALS (8 sets, daily range): BP systolic 123–132; BP diastolic 63–76; PULSE 70–86; RESP 16–20; TEMP 36.6–37; O2SAT 93–97
[2022-01-24 03:07] LABS: Basophils # 0.1 10^3/uL (0.0-0.1); Basophils % 0.9 %; Eosinophils # 0.5 10^3/uL (0.0-0.8); Eosinophils % 5.6 %; Hematocrit 39.9 % (37.0-47.0); Hemoglobin 12.9 g/dL (11.5-15.3); Lymphocytes # 2.7 10^3/uL (0.8-4.8); Lymphocytes % 32.8 %; Mean Corpuscular HGB Conc 32.3 g/dL (30.0-36.0); Mean Corpuscular Hemoglobin 29.3 pg (28.0-34.0); Mean Corpuscular Volume 90.5 fl (81-99); Mean Platelet Volume 10.1 fL (7.4-10.4); Monocytes # 0.9 10^3/uL (0.2-0.9); Monocytes % 11.1 %; Neutrophils # 4.01 10^3/uL (1.8-7.7); Neutrophils % 49.1 %; Nucleated Red Blood Cells % 0 %; Platelet Count 271 10^3/cmm (130-400); Red Blood Count 4.41 10^6/uL (4.1-5.3); White Blood Count 8.2 10^3/uL (4.0-10.0)
[2022-01-24 03:31] LABS: Alanine Aminotransferase 14 U/L (0-33); Albumin Level 3.7 g/dL (3.5-5.2); Alkaline Phosphatase 53 IU/L (35-105); Anion Gap 16.9 (5-19); Aspartate Amino Transferase 13 U/L (0-32); Blood Urea Nitrogen 29 mg/dL (8-23); Carbon Dioxide 26 mmol/L (22-29); Chloride 97 mmol/L (98-107); Globulin 3.9 g/dL (1.3-4.6); Glomerular Filtration Rate 63.4 mL/min (90-130); Glucose 164 mg/dL (65-115); Osmolality Calculated 291 mOsm/kg (285-295); Potassium 3.9 mmol/L (3.5-5.1); Sodium 136 mmol/L (136-145); Total Bilirubin 0.2 mg/dL (0.15-1.2); Total Protein 7.6 g/dL (6.6-8.7)
[2022-01-24] MEDS: heparin 5,000 unit/mL INJ 1 mL 5000 UNIT SUBCUT ×2 (03:42→14:48)
[2022-01-24] MEDS: amlodipine 10 mg Tablet PO (08:03)
[2022-01-24] MEDS: losartan 50 mg Tablet 100 MG PO (08:03)
[2022-01-24] MEDS: fenofibrate 145 mg Tablet PO (08:03)
[2022-01-24] MEDS: metoprolol tartrate 50 mg Tablet PO (08:03)
[2022-01-24] MEDS: hydroCHLOROthiazide 25 mg Tablet PO (08:03)
[2022-01-24] MEDS: famotidine 20 mg Tablet PO ×2 (08:04→17:32)
--- NOTE | 2022-01-24 10:00 | MR_ITS ---
WS: [id number] MRI HEAD WITHOUT CONTRAST TECHNIQUE: Sagittal T1, T2 axial, T2 axial FLAIR, axial and coronal T1 images, axial susceptibility w eighted imaging, axial diffusion weighted images, and coronal T2 images were obtained. CLINICAL INFORMATION: evlaute for CVA vs PRES COMPARISON: CT January 22, 2022 FINDINGS: No evidence of restricted diffusion to suggest acute ischemia. Ventricular system and basal cisterns are patent. Mild small vessel changes. Moderate parenchymal volume loss. Small vessel changes in the chastity. Normal posterior fossa. Normal vascular flow voids at the skull base. No extra-axial fluid diamond ections. No evidence of mass or mass effect. Paranasal sinuses and mastoid air cells well aerated. No hemosiderin on the susceptibly weighted images. Normal optic chiasm and pituitary infundibulum. Mild symmetric atrophy temporal lobes and hippocampal formations. MR/MR head wo con* [id number] IMPRESSION: 1. No evidence of restricted diffusion to suggest acute ischemia. 2. Mild small vessel changes with moderate parenchymal volume loss. 3. No evidence of PRES 4. No hemosiderin on susceptibly weighted images. 5. Mild symmetric atrophy temporal lobes and hippocampal formations. 6. No other significant findings.
--- NOTE | 2022-01-24 10:21 | PC.CHAP ---
Pastoral Care Encounter/Spiritual Assessment Type of Contact [] Declined job order clerk visit [] Patient/Family/Request visit [] Outpatient visit [] Follow-up visit [] Physician referral [] Code/Alert [x] Routine visit [] Staff referral [] Actively dying [] Patient sleeping [] Family support [] [] Out of room [] Palliative care [] [] Receiving care in room [] Pre-surgical visit [] Trauma [] Long length of stay [] ICU visit [] Other: Relational/Emotional Strength [x] Patient feels connected with others/family/visitors/staff [] Distress [] Loneliness/isolation [] Abandonment Spirituality of Patient [x] Person of Lizette x] Attends Jainism of their Lizette []x Believes in Prayer [] Reads Bible or Church materials [] There are Spiritual issues to be addressed Leg Man Interventions [x] Prayer [x] Active listening x[] Non-anxious presence [x] Spiritual/emotional support [] Crisis/trauma care [] Spiritual counseling [] Bereavement support [] Provided bereavement packet [] Provided Bible/devotional materials [] Provided toy/stuffed animal, coloring book to patient or family member [] Provided Communion [] Anointing/Girard [] Salvation [x] Completed spiritual assessment [] Other: Impact on Illness or Injury [] Angry [] Fearful [] Anxious [] Often cries [] Exhaustion [] Unable to work [] Unable to attend adventism [] Unable to walk/stand [] Unable to read [] Unable to drive [] Unable to eat/drink [] Unable to sleep [] Unable to be with family [] Patient intubated [] Other: Summary patient says shes feelinh much better Time spent with patient 10 min
--- NOTE | 2022-01-24 16:37 | P.DS_ITS ---
Discharge Providers Date of Admission: 01/22/22 04:38 Date of Discharge: January 24, 2022 Attending Provider at Admission: Zuly Ernandez MD Attending Provider at Discharge: Sweta Rivas MD Primary Care Provider: Tracey Mariano DO Diagnoses at Discharge Discharge Diagnosis (1) Altered mental status: Details from hospital stay: Most likely metabolic from Elavil, Ambien Status: Resolved (2) Uncontrolled hypertension: Details from hospital stay: corrected now Status: Resolved Reason for Visit Reason for Visit: Possible Stroke\Not making Sense Hospital Course Hospital Course History obtained mainly by talkin to ERP. Patient is unreliable at this point in time due to lethargy and disorientation. Katia Knott is a 61 year old female with chronic back pain, peripheral neuopathy, HTN last seen normal on Monday evening (today is monday). When her returned from work on night, he noticed that she was acting confused and disoriented. Initially attributed this to baclofen but then presented to ER when symptoms continued to persist. She has additionally recently started AMbien, bottle for a month's prescription was reportedly found empty in 10 days.? Today she c/o maliase, fatigue. She responds yes or no to simple questions but content of speech not entirely clear. She was noted to be ambulating in the ER earlier today. No known recent fever, chills, cough, expectoration BP in the ER noted upon arrival to be 218/104mmhg. Given labetalol IVP. U tox negative.? no past h/o seizures. Pt had an uncomplicated hospital course. All SUPPLIER QUALITY ENGINEER suppressants were held including Elavil, Ambien. Her mental status improved but speech was alkmost to her baseline. CT Head, MRI Head did not show any acute changes. She was hypertensive and was corrected. Has chr low back pain for which she will f/u w/ her spinal orthopedic MD. Physical Exam Narrative: NAD Resp: OTHER: BS+, CTA Cardio: OTHER: S1S2, RRR, Mur (-) GI: OTHER: Soft, NT, BS+ Back/Pelvis: OTHER: Lumar spinal mild tender Extremity: OTHER: Edema+ Neuro: OTHER: A&Ox3 Discharge Data Studies Completed and Pending Completed Studies During Hospitalization Category Date Time Status CT head wo con* [id number] Stat Cat Scan 01/22/22 03:10 Completed XR chest 1V portable [id number] Stat Exams 01/22/22 03:12 Completed MR head wo con* [id number] Routine MRI 01/24/22 10:00 Completed Pending at discharge Category Date Time Status Miscellaneous Test Stat Lab 01/22/22 13:00 Received Radiology Impressions Head CT 01/22/22 03:10 IMPRESSION: No acute intracranial findings. Chest X-Ray 01/22/22 03:12 IMPRESSION: No acute findings. Head MRI 01/24/22 10:00 IMPRESSION: 1. No evidence of restricted diffusion to suggest acute ischemia. 2. Mild small vessel changes with moderate parenchymal volume loss. 3. No evidence of PRES 4. No hemosiderin on susceptibly weighted images. 5. Mild symmetric atrophy temporal lobes and hippocampal formations. 6. No other significant findings. Laboratory Results WBC 8.2 10^3/uL (4.0-10.0) 01/24/22 02:15 RBC 4.41 10^6/uL (4.1-5.3) 01/24/22 02:15 Hgb 12.9 g/dL (11.5-15.3) 01/24/22 02:15 Hct 39.9 % (37.0-47.0) 01/24/22 02:15 MCV 90.5 fl (81-99) 01/24/22 02:15 MCH 29.3 pg (28.0-34.0) 01/24/22 02:15 MCHC 32.3 g/dL (30.0-36.0) 01/24/22 02:15 RDW 13.0 % (12.1-15.1) 01/24/22 02:15 Plt Count 271 10^3/cmm (130-400) 01/24/22 02:15 MPV 10.1 fL (7.4-10.4) 01/24/22 02:15 Neut % (Auto) 49.1 % 01/24/22 02:15 Lymph % (Auto) 32.8 % 01/24/22 02:15 [place] % (Auto) 11.1 % 01/24/22 02:15 Eos % (Auto) 5.6 % 01/24/22 02:15 Baso % (Auto) 0.9 % 01/24/22 02:15 Neut # (Auto) 4.01 10^3/uL (1.8-7.7) 01/24/22 02:15 Lymph # (Auto) 2.7 10^3/uL (0.8-4.8) 01/24/22 02:15 [place] # (Auto) 0.9 10^3/uL (0.2-0.9) 01/24/22 02:15 Eos # (Auto) 0.5 10^3/uL (0.0-0.8) 01/24/22 02:15 Baso # (Auto) 0.1 10^3/uL (0.0-0.1) 01/24/22 02:15 Nucleated RBC % (auto) 0 % 01/24/22 02:15 Nucleated RBCs # 0.0 /100WBC 01/24/22 02:15 PT 13.20 SECONDS (12.1-14.9) 01/22/22 03:15 INR 0.97 (0.8-1.2) 01/22/22 03:15 APTT 26.3 SECONDS (23.9-36.7) 01/22/22 03:15 Sodium 136 mmol/L (136-145) 01/24/22 02:15 Potassium 3.9 mmol/L (3.5-5.1) 01/24/22 02:15 Chloride 97 mmol/L (98-107) L 01/24/22 02:15 Carbon Dioxide 26 mmol/L (22-29) 01/24/22 02:15 Anion Gap 16.9 (5-19) 01/24/22 02:15 BUN 29 mg/dL (8-23) H 01/24/22 02:15 Creatinine 0.9 mg/dL (0.5-0.9) 01/24/22 02:15 GFR Calculation 63.4 mL/min (90-130) L 01/24/22 02:15 Glucose 164 mg/dL (65-115) H 01/24/22 02:15 Calculated Osmolality 291 mOsm/kg (285-295) 01/24/22 02:15 Lactate 0.9 mmol/L (0.5-2.2) 01/22/22 03:15 Calcium 10.0 mg/dL (8.5-10.5) 01/24/22 02:15 Total Bilirubin 0.2 mg/dL (0.15-1.2) 01/24/22 02:15 AST 13 U/L (0-32) 01/24/22 02:15 ALT 14 U/L (0-33) 01/24/22 02:15 Alkaline Phosphatase 53 IU/L (35-105) 01/24/22 02:15 Total Protein 7.6 g/dL (6.6-8.7) 01/24/22 02:15 Albumin 3.7 g/dL (3.5-5.2) 01/24/22 02:15 Globulin 3.9 g/dL (1.3-4.6) 01/24/22 02:15 TSH 1.08 uIU/mL (0.27-4.20) 01/22/22 03:15 Urine Color Yellow (Yellow) 01/22/22 03:40 Urine Appearance Clear (CLEAR) 01/22/22 03:40 Urine pH 6.5 (5-7) 01/22/22 03:40 Ur Specific [place] 1.010 (1.005-1.030) 01/22/22 03:40 Urine Protein Neg (Negative) 01/22/22 03:40 Urine Glucose (UA) Norm (Normal) 01/22/22 03:40 Urine Ketones Negative (Negative) 01/22/22 03:40 Urine Blood Neg (Negative) 01/22/22 03:40 Urine Nitrate Negative (Negative) 01/22/22 03:40 Urine Bilirubin Neg (Negative) 01/22/22 03:40 Urine Urobilinogen Norm mg/dL (Negative) 01/22/22 03:40 Ur Leukocyte Esterase Negative (Negative) 01/22/22 03:40 Urine Opiates Screen Negative ng/mL (Negative) 01/22/22 03:40 Ur Barbiturates Screen Negative ng/mL (Negative) 01/22/22 03:40 Ur Phencyclidine Scrn Negative ng/mL (Negative) 01/22/22 03:40 Ur Amphetamines Screen Negative ng/mL (Negative) 01/22/22 03:40 U Benzodiazepines Scrn Negative ng/mL (Negative) 01/22/22 03:40 Urine Cocaine Screen Negative ng/mL (Negative) 01/22/22 03:40 U Marijuana (THC) Screen Negative ng/mL (Negative) 01/22/22 03:40 Ethyl Alcohol < 10 mg/dL (0-10) 01/22/22 03:15 SARS-CoV-2 Ag (Rapid) Negative (Negative) 01/22/22 10:45 Vitals Last Vital Signs Temp 97.9 F 01/24/22 15:07 Pulse 86 01/24/22 15:07 Resp 16 01/24/22 15:07 BP 127/76 01/24/22 15:07 Pulse Ox 97 01/24/22 15:07 Discharge Plan Discharge Patient Disposition: Home Condition: Stable Prescriptions: New acetaminophen 325 mg Tablet 650 mg PO Q6H PRN (Reason: Mild/Mod Pain Or Temp >/= 101) Qty: 100 0RF amlodipine 10 mg Tablet 10 mg PO DAILY Qty: 30 0RF metoprolol tartrate 50 mg Tablet 50 mg PO BID@0900,2100 Qty: 60 0RF Continued fenofibrate nanocrystallized 145 mg tablet 145 mg PO DAILY 0RF baclofen 20 mg tablet 20 mg PO TID 0RF hydrochlorothiazide 25 mg tablet 25 mg PO DAILY 0RF losartan 100 mg tablet 100 mg PO DAILY 0RF diclofenac sodium 50 mg tablet,delayed release (DR/EC) 50 mg PO Q12H PRN (Reason: pain) Qty: 20 0RF bupropion HCl 100 mg tablet sustained-release 12 hr 100 mg PO BID 0RF Discontinued amlodipine [Norvasc] 5 mg tablet 5 mg PO DAILY 0RF amitriptyline 150 mg tablet 300 mg PO BEDTIME 0RF zolpidem 10 mg tablet 10 mg PO BEDTIME PRN (Reason: Insomnia) 0RF Discharge Orders: Discharge Order (Routine); Ordered 01/24/22 Ordered By: Sweta Rivas Other Ambulatory Orders: DME: [facility] (Order) Location: None Selected Ordered By: Adolfo Juárez Referrals: Tracey Mariano DO [Primary Care Provider] - 7-10 days (PLEASE CALL FOR APPOINTMENT [phone]) Discharge Diet: Low Cholesterol and Low Fat Discharge Activity: Resume usual activity Patient Instructions: Metoprolol (By mouth), Amlodipine (By mouth), Chronic Hypertension (GEN), Opioid Safety Discharge Attestations Time Spent in Discharge Care*: greater than 30 min Quality Metrics Clinical Quality Measures [ No reported AMI, CVA or VTE this stay] Coding Level of Care Code Acute Chg FW DC note Diagnoses Altered mental status R41.82 Uncontrolled hypertension I10
--- NOTE | 2022-01-24 17:03 | PM.DCS ---
Discharge Providers Date of Admission: 01/22/22 04:38 Date of Discharge: January 24, 2022 Attending Provider at Admission: Zuly Ernandez MD Attending Provider at Discharge: Sweta Rivas MD Primary Care Provider: Tracey Mariano DO Diagnoses at Discharge Discharge Diagnosis (1) Altered mental status: Status: Acute (2) Uncontrolled hypertension: Status: Acute Reason for Visit Reason for Visit: Possible Stroke\Not making Sense Hospital Course Hospital Course History obtained mainly by talkin to ERP. Patient is unreliable at this point in time due to lethargy and disorientation. Katia Knott is a 61 year old female with chronic back pain, peripheral neuopathy, HTN last seen normal on Monday evening (today is monday). When her returned from work on night, he noticed that she was acting confused and disoriented. Initially attributed this to baclofen but then presented to ER when symptoms continued to persist. She has additionally recently started AMbien, bottle for a month's prescription was reportedly found empty in 10 days.? Today she c/o maliase, fatigue. She responds yes or no to simple questions but content of speech not entirely clear. She was noted to be ambulating in the ER earlier today. No known recent fever, chills, cough, expectoration BP in the ER noted upon arrival to be 218/104mmhg. Given labetalol IVP. U tox negative.? no past h/o seizures. Pt had an uncomplicated hospital course. 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 Her mental status improved but speech was alkmost to her baseline. CT Head, MRI Head did not show any acute changes. She was hypertensive and was corrected. Has chr low back pain for which she will f/u w/ her spinal orthopedic MD. Discharge Data Studies Completed and Pending Completed Studies During Hospitalization Category Date Time Status CT head wo con* [id number] Stat Cat Scan 01/22/22 03:10 Completed XR chest 1V portable [id number] Stat Exams 01/22/22 03:12 Completed MR head wo con* [id number] Routine MRI 01/24/22 10:00 Completed Pending at discharge Category Date Time Status Miscellaneous Test Stat Lab 01/22/22 13:00 Received Radiology Impressions Head CT 01/22/22 03:10 IMPRESSION: No acute intracranial findings. Chest X-Ray 01/22/22 03:12 IMPRESSION: No acute findings. Head MRI 01/24/22 10:00 IMPRESSION: 1. No evidence of restricted diffusion to suggest acute ischemia. 2. Mild small vessel changes with moderate parenchymal volume loss. 3. No evidence of PRES 4. No hemosiderin on susceptibly weighted images. 5. Mild symmetric atrophy temporal lobes and hippocampal formations. 6. No other significant findings. Laboratory Results WBC 8.2 10^3/uL (4.0-10.0) 01/24/22 02:15 RBC 4.41 10^6/uL (4.1-5.3) 01/24/22 02:15 Hgb 12.9 g/dL (11.5-15.3) 01/24/22 02:15 Hct 39.9 % (37.0-47.0) 01/24/22 02:15 MCV 90.5 fl (81-99) 01/24/22 02:15 MCH 29.3 pg (28.0-34.0) 01/24/22 02:15 MCHC 32.3 g/dL (30.0-36.0) 01/24/22 02:15 RDW 13.0 % (12.1-15.1) 01/24/22 02:15 Plt Count 271 10^3/cmm (130-400) 01/24/22 02:15 MPV 10.1 fL (7.4-10.4) 01/24/22 02:15 Neut % (Auto) 49.1 % 01/24/22 02:15 Lymph % (Auto) 32.8 % 01/24/22 02:15 [place] % (Auto) 11.1 % 01/24/22 02:15 Eos % (Auto) 5.6 % 01/24/22 02:15 Baso % (Auto) 0.9 % 01/24/22 02:15 Neut # (Auto) 4.01 10^3/uL (1.8-7.7) 01/24/22 02:15 Lymph # (Auto) 2.7 10^3/uL (0.8-4.8) 01/24/22 02:15 [place] # (Auto) 0.9 10^3/uL (0.2-0.9) 01/24/22 02:15 Eos # (Auto) 0.5 10^3/uL (0.0-0.8) 01/24/22 02:15 Baso # (Auto) 0.1 10^3/uL (0.0-0.1) 01/24/22 02:15 Nucleated RBC % (auto) 0 % 01/24/22 02:15 Nucleated RBCs # 0.0 /100WBC 01/24/22 02:15 PT 13.20 SECONDS (12.1-14.9) 01/22/22 03:15 INR 0.97 (0.8-1.2) 01/22/22 03:15 APTT 26.3 SECONDS (23.9-36.7) 01/22/22 03:15 Sodium 136 mmol/L (136-145) 01/24/22 02:15 Potassium 3.9 mmol/L (3.5-5.1) 01/24/22 02:15 Chloride 97 mmol/L (98-107) L 01/24/22 02:15 Carbon Dioxide 26 mmol/L (22-29) 01/24/22 02:15 Anion Gap 16.9 (5-19) 01/24/22 02:15 BUN 29 mg/dL (8-23) H 01/24/22 02:15 Creatinine 0.9 mg/dL (0.5-0.9) 01/24/22 02:15 GFR Calculation 63.4 mL/min (90-130) L 01/24/22 02:15 Glucose 164 mg/dL (65-115) H 01/24/22 02:15 Calculated Osmolality 291 mOsm/kg (285-295) 01/24/22 02:15 Lactate 0.9 mmol/L (0.5-2.2) 01/22/22 03:15 Calcium 10.0 mg/dL (8.5-10.5) 01/24/22 02:15 Total Bilirubin 0.2 mg/dL (0.15-1.2) 01/24/22 02:15 AST 13 U/L (0-32) 01/24/22 02:15 ALT 14 U/L (0-33) 01/24/22 02:15 Alkaline Phosphatase 53 IU/L (35-105) 01/24/22 02:15 Total Protein 7.6 g/dL (6.6-8.7) 01/24/22 02:15 Albumin 3.7 g/dL (3.5-5.2) 01/24/22 02:15 Globulin 3.9 g/dL (1.3-4.6) 01/24/22 02:15 TSH 1.08 uIU/mL (0.27-4.20) 01/22/22 03:15 Urine Color Yellow (Yellow) 01/22/22 03:40 Urine Appearance Clear (CLEAR) 01/22/22 03:40 Urine pH 6.5 (5-7) 01/22/22 03:40 Ur Specific [place] 1.010 (1.005-1.030) 01/22/22 03:40 Urine Protein Neg (Negative) 01/22/22 03:40 Urine Glucose (UA) Norm (Normal) 01/22/22 03:40 Urine Ketones Negative (Negative) 01/22/22 03:40 Urine Blood Neg (Negative) 01/22/22 03:40 Urine Nitrate Negative (Negative) 01/22/22 03:40 Urine Bilirubin Neg (Negative) 01/22/22 03:40 Urine Urobilinogen Norm mg/dL (Negative) 01/22/22 03:40 Ur Leukocyte Esterase Negative (Negative) 01/22/22 03:40 Urine Opiates Screen Negative ng/mL (Negative) 01/22/22 03:40 Ur Barbiturates Screen Negative ng/mL (Negative) 01/22/22 03:40 Ur Phencyclidine Scrn Negative ng/mL (Negative) 01/22/22 03:40 Ur Amphetamines Screen Negative ng/mL (Negative) 01/22/22 03:40 U Benzodiazepines Scrn Negative ng/mL (Negative) 01/22/22 03:40 Urine Cocaine Screen Negative ng/mL (Negative) 01/22/22 03:40 U Marijuana (THC) Screen Negative ng/mL (Negative) 01/22/22 03:40 Ethyl Alcohol < 10 mg/dL (0-10) 01/22/22 03:15 SARS-CoV-2 Ag (Rapid) Negative (Negative) 01/22/22 10:45 Vitals Last Vital Signs Temp 97.9 F 01/24/22 15:07 Pulse 86 01/24/22 15:07 Resp 16 01/24/22 15:07 BP 127/76 01/24/22 15:07 Pulse Ox 97 01/24/22 15:07 Discharge Plan Discharge Patient Disposition: Home Condition: Stable Prescriptions: New acetaminophen 325 mg Tablet 650 mg PO Q6H PRN (Reason: Mild/Mod Pain Or Temp >/= 101) Qty: 100 0RF amlodipine 10 mg Tablet 10 mg PO DAILY Qty: 30 0RF metoprolol tartrate 50 mg Tablet 50 mg PO BID@0900,2100 Qty: 60 0RF Continued fenofibrate nanocrystallized 145 mg tablet 145 mg PO DAILY 0RF baclofen 20 mg tablet 20 mg PO TID 0RF hydrochlorothiazide 25 mg tablet 25 mg PO DAILY 0RF losartan 100 mg tablet 100 mg PO DAILY 0RF diclofenac sodium 50 mg tablet,delayed release (DR/EC) 50 mg PO Q12H PRN (Reason: pain) Qty: 20 0RF bupropion HCl 100 mg tablet sustained-release 12 hr 100 mg PO BID 0RF Discontinued amlodipine [Norvasc] 5 mg tablet 5 mg PO DAILY 0RF amitriptyline 150 mg tablet 300 mg PO BEDTIME 0RF zolpidem 10 mg tablet 10 mg PO BEDTIME PRN (Reason: Insomnia) 0RF Other Ambulatory Orders: DME: [facility] (Order) Location: None Selected Ordered By: Adolfo Juárez Referrals: Tracey Mariano DO [Primary Care Provider] - Discharge Diet: Low Cholesterol and Low Fat Discharge Activity: Resume usual activity Patient Instructions: Opioid Safety Discharge Attestations Time Spent in Discharge Care*: greater than 30 min Quality Metrics Clinical Quality Measures [ No reported AMI, CVA or VTE this stay] Coding Level of Care Code Acute Chg FW DC note Diagnoses Altered mental status R41.82 Uncontrolled hypertension I10
== END 2022-01-24 17:34 | disposition home or self-care (01) | DRG 305 ==
LOC: ER 04:34 → MEDSURG 04:47
PROVIDERS: Student in an Organized Health Care Education/Training Program; Admitting Provider Student in an Organized Health Care Education/Training Program; Emergency Provider Emergency Medicine; PCP Family Medicine; Visit Provider Internal Medicine
DX: I16.0 Hypertensive urgency (principal); R41.82 Altered mental status, unspecified; I10 Essential (primary) hypertension; T50.915A Adverse effect of multiple unspecified drugs, medicaments and biological substances, initial encounter; T42.6X1A Poisoning by other antiepileptic and sedative-hypnotic drugs, accidental (unintentional), initial encounter; F17.211 Nicotine dependence, cigarettes, in remission; G89.4 Chronic pain syndrome; E78.5 Hyperlipidemia, unspecified; G62.9 Polyneuropathy, unspecified; I73.9 Peripheral vascular disease, unspecified; M54.59 Other low back pain
CPT/HCPCS: 36415; 70450; 70551; 71045; 80053; 80306; 80307; 80323; 81003; 83605; 84443; 85025; 85610; 85730; 87426; 92507; 92523; 92610; 93005; 96361; 96372; 96374; 97161; 97530; 99285; J0360; J1644; J3490; J7030

== ENCOUNTER → 2022-03-03 10:15 | Outpatient (BNVA) | payer BC, SELFPAY | PROVIDERS: PCP Family Medicine; Referring Provider Registered Nurse; Visit Provider Physician Assistant | DX: M54.50 Low back pain, unspecified (principal); E78.5 Hyperlipidemia, unspecified; I10 Essential (primary) hypertension | CPT/HCPCS: 36415; 72110; 83036 ==

== ENCOUNTER 2022-04-13 15:59 | Outpatient (CLI) | payer BC, SELFPAY ==
--- NOTE | 2022-04-13 16:48 | XRR_ITS ---
PROCEDURE INFORMATION: Exam: XR Left Foot Exam date and time: 04/13/2022 4:49 PM Age: 61 years old Clinical indication: Injury or trauma; Other: PT stepped on a bow and arrow piece 2 days, cut on bottom of foot mid to distal; Laceration; Left; Foreign body involvement not specified; Injury date: 2 days ago; Additional info: Penetrating foot wound, left, initial TECHNIQUE: Imaging protocol: XR Left foot. Views: 3 or more views. COMPARISON: CR XR foot RT 3V w AP LT ORTH 08/13/2021 10:35 AM FINDINGS: Bones/joints: Small calcified heel spur. Soft tissues: Normal. XR/XR foot LT min 3V* [id number] IMPRESSION: 1. Negative for fracture or dislocation. 2. Small calcified heel spur.
== END 2022-04-13 16:00 | disposition home or self-care (01) ==
PROVIDERS: PCP Family Medicine; Visit Provider Nurse Practitioner Family
DX: S91.332A Puncture wound without foreign body, left foot, initial encounter (principal); X58.XXXA Exposure to other specified factors, initial encounter
CPT/HCPCS: 73630

== ENCOUNTER 2022-06-13 09:55 | Outpatient (CLI) | payer BC, SELFPAY ==
--- NOTE | 2022-06-13 10:09 | XRR_ITS ---
PROCEDURE INFORMATION: Exam: XR Right Toe(s) Exam date and time: 06/13/2022 10:14 AM Age: 61 years old Clinical indication: Pain; Toes; Right; Additional info: Cellulitis of R toe TECHNIQUE: Imaging protocol: Radiologic exam of the Right toes. Views: Minimum 2 views. COMPARISON: CR XR foot RT 3V w AP LT ORTH 08/13/2021 10:35 AM FINDINGS: Bones/joints: No acute fracture or dislocation. Old healed fracture deformity of the 2nd and 4th metatarsals noted. No evidence of focal osteopenia, periosteal reaction or cortical destruction to suggest osteomyelitis. Soft tissues: There is swelling of the 5th toe soft tissues. No radiopaque foreign body identified. XR/XR toe RT min 2V [id number] IMPRESSION: 1. Swelling of the soft tissues about the lateral aspect of the foot/5th toe. 2. No radiographic evidence of osteomyelitis.
== END 2022-06-13 09:56 | disposition home or self-care (01) ==
LOC: RAD 09:58
PROVIDERS: PCP Family Medicine; Visit Provider Family Medicine
DX: L03.031 Cellulitis of right toe (principal); M79.89 Other specified soft tissue disorders
CPT/HCPCS: 73660

== ENCOUNTER 2022-06-28 15:04 | Emergency (ER) | payer BC, SELFPAY ==
[2022-06-28 15:14] VITALS: BP 138/78; PULSE 92; RESP 16; TEMP 36.1; O2SAT 95; BMI 29.0
--- NOTE | 2022-06-28 15:56 | XRR_ITS ---
PROCEDURE INFORMATION: Exam: XR Right Toe(s) Exam date and time: 06/28/2022 4:22 PM Age: 61 years old Clinical indication: Pain; Toes; Right; Additional info: Necrotic 5th toe TECHNIQUE: Imaging protocol: Radiologic exam of the Right toes. Views: Minimum 2 views. COMPARISON: CR XR toe RT min 2V [id number] 06/13/2022 10:14 AM FINDINGS: Bones/joints: There is old healed fracture of the 4th metatarsal. There is no acute fracture or dislocation. Soft tissues: Mild soft tissue swelling of the 5th toe. Other findings: No specific finding is seen to suggest active osteomyelitis. MRI would be more sensitive for the detection of early osteomyelitis. XR/XR toe RT min 2V [id number] IMPRESSION: Soft tissue swelling. No acute finding otherwise.
--- NOTE | 2022-06-28 15:57 | USR_ITS ---
PROCEDURE INFORMATION: Exam: US Duplex Right Lower Extremity Arteries Or Arterial Bypass Grafts Exam date and time: 06/28/2022 5:10 PM Age: 61 years old Clinical indication: Pain; Leg, lower; Right; Additional info: Necrotic R 5th toe TECHNIQUE: Imaging protocol: Right Real-time duplex scan of the arteries or arterial bypass grafts of the right lower extremity with 2-D pelayo scale, color Doppler flow and spectral waveform analysis. Images documented and saved. COMPARISON: US pelvic with transvaginal 10/27/2015 8:15 AM FINDINGS: Right external iliac artery: Monophasic waveform. Delayed systolic upstroke. Findings suggest more proximal stenosis. Right common femoral artery: No occlusion or significant stenosis. Monophasic waveform. Right superficial femoral artery: No occlusion or significant stenosis. Monophasic waveform, prolonged systolic upstroke. Right popliteal artery: No occlusion or significant stenosis. Monophasic waveform prolonged systolic upstroke. Right calf/foot arteries: No occlusion or significant stenosis in the visualized arteries. Monophasic waveforms. Dorsalis pedis artery is patent. CA[place]ILLO: Right ankle brachial index is 0.39. This value implies severe vascular insufficiency. Soft tissues: No hematoma or collection. US/[place] [id number] IMPRESSION: Abnormal examination implying severe vascular insufficiency. Findings suggest also more proximal disease.
--- NOTE | 2022-06-28 15:59 | W.ED.EXTPRO ---
HPI - Extremity Problem General: Chief complaint: Extremity Injury, Lower Stated complaint: Right toe is painful and black Time Seen by Provider: 06/28/22 15:36 Source: patient Mode of arrival: ambulatory Limitations: no limitations History of Present Illness: Patient is a 61-year-old female with a history of peripheral neuropathy, diabetes, everyday smoking, and presumed peripheral vascular disease here after she was sent here from wound care for evaluation of a right fifth toe wound/necrosis. Patient has been seeing wound care over the past few weeks for the toe as initially she just had a wound to it but family states over the past 2 days it has become black and necrotic as well as foul-smelling. She is complaining of pain to the toe. Patient is a diabetic and states her last A1c was checked approximately 3 months ago and it was roughly 9.5%. MD Complaint: extremity pain and other (necrotic toe) Onset (ago): day(s) (2 days) Pain Consistency: constant Location: right and toe Radiation: none Relieving factors: nothing Exacerbating factors: nothing Associated symptoms: Deny chest pain or fever(s) Review of Systems Const: Denies: fever(s), body aches or fatigue Card: Denies: chest pain Resp: Denies: dyspnea GI: Denies: abdominal pain, nausea or vomiting Musc: Reports: extremity pain (R 5th toe); Denies: neck pain, back pain or extremity swelling Neuro: Reports: sensory changes (chronic LE diabetic neuropathy) PFS ED PFSH: Medical History Bilateral hand pain Chronic left upper quadrant pain Chronic pain syndrome Chronic right lower quadrant pain Essential (primary) hypertension Hyperlipidemia, unspecified Insomnia, unspecified Peripheral neuropathy, idiopathic PVD (peripheral vascular disease) Smoking Tobacco use Surgical History H/O oophorectomy S/P knee surgery LEFT S/P shoulder surgery LEFT X2 RIGHT X1 Family History Mother Diabetes Anesthesia complication Hypertension Brother Diabetes Cancer LUNG AND KIDNEY Father Cancer Social History Smoking and tobacco status: current every day smoker cigarettes Packs smoked per day: 1 Quit status (tobacco): considering quitting Second hand smoke exposure: No Smoking risk assessment/counseling performed?: No Alcohol intake: never Desire information about alcohol rehabilitation?: No Counseling given: No Desire information about substance/drug rehabilitation?: No Counseling given: No Physical Exam Const: COMMON NORMALS: no acute distress, patient oriented x3, no limitations, alert and well nourished GENERAL APPEARANCE: cooperative Resp: COMMON NORMALS: normal respiratory effort and clear to auscultation bilaterally AUSCULTATION: clear to auscultation bilaterally Cardio: COMMON NORMALS: regular rate and regular rhythm RATE: regular rate RHYTHM: regular rhythm Extremity: COMMON NORMALS: capillary refill normal, no clubbing, cyanosis or edema, no calf tenderness and no pedal edema GENERAL: Yes normal exam except as noted RIGHT LOWER EXTREMITY: Yes foot & digits OTHER: necrotic foul smelling R 5th digit/toe; slight erythema but no diffuse cellulitis; no lymphangitic streaking Neuro: COMMON NORMALS: patient oriented x3, moves all extremities, no focal motor deficits and no sensory deficits noted SENSORIUM/ORIENTATION: Yes alert Course Vital Signs: Vital signs: Vital Signs Temperature 97.0 F L 06/28/22 15:14 Pulse Rate 88 06/28/22 18:20 Respiratory Rate 16 06/28/22 19:20 Blood Pressure 163/76 06/28/22 18:20 Pulse Oximetry 98 06/28/22 19:20 Oxygen Delivery Me thod 06/28/22 18:20 MDM - Extremity (Nontraumatic) Medical Decision Making Patient is not tachycardic or febrile. She has a normal white count. She has a normal lactate. Her CRP is mildly elevated at 23.0. She does have necrosis to her right fifth toe clinically. XR showing no evidence of osteomyelitis although early osteomyelitis cannot be ruled out on plain films. Her arterial US showing severe vascular insufficiency but she does maintain monophasic flow throughout. I spoke to Dr. Wills who states he will talk to interventional cardiology and try to get her set up for a stat arterial angiogram for improved flow to her lower extremity and then depending on how toe does-discuss need for amputation. Patient has been on multiple rounds of oral antibiotics without much improvement. Dr. Wills did not feel like we needed to do additional antibiotics today. She was given Vanc/Zosyn while here. Strict return to ED precautions given. She can continue to follow up with wound care in the meantime. Spoke to Dr. Lyon who agrees with care plan for patient. Lab Data : 06/28/22 18:04 06/28/22 18:04 Radiology Impressions Toe X-Ray 06/28/22 15:56 IMPRESSION: Soft tissue swelling. No acute finding otherwise. Duplex Scan Lower Extremity Artery 06/28/22 15:57 IMPRESSION: Abnormal examination implying severe vascular insufficiency. Findings suggest also more proximal disease. Laboratory Results WBC 7.6 10^3/uL (4.0-10.0) 06/28/22 18:04 RBC 4.71 10^6/uL (4.1-5.3) 06/28/22 18:04 Hgb 13.6 g/dL (11.5-15.3) 06/28/22 18:04 Hct 44.0 % (37.0-47.0) 06/28/22 18:04 MCV 93.4 fl (81-99) 06/28/22 18:04 MCH 28.9 pg (28.0-34.0) 06/28/22 18:04 MCHC 30.9 g/dL (30.0-36.0) 06/28/22 18:04 RDW 13.9 % (12.1-15.1) 06/28/22 18:04 Plt Count 352 10^3/cmm (130-400) 06/28/22 18:04 MPV 9.8 fL (7.4-10.4) 06/28/22 18:04 Neut % (Auto) 66.0 % 06/28/22 18:04 Lymph % (Auto) 26.1 % 06/28/22 18:04 [place] % (Auto) 6.1 % 06/28/22 18:04 Eos % (Auto) 0.9 % 06/28/22 18:04 Baso % (Auto) 0.5 % 06/28/22 18:04 Neut # (Auto) 5.02 10^3/uL (1.8-7.7) 06/28/22 18:04 Lymph # (Auto) 2.0 10^3/uL (0.8-4.8) 06/28/22 18:04 [place] # (Auto) 0.5 10^3/uL (0.2-0.9) 06/28/22 18:04 Eos # (Auto) 0.1 10^3/uL (0.0-0.8) 06/28/22 18:04 Baso # (Auto) 0.0 10^3/uL (0.0-0.1) 06/28/22 18:04 Nucleated RBC % (auto) 0 % 06/28/22 18:04 Nucleated RBCs # 0.0 /100WBC 06/28/22 18:04 Sodium 140 mmol/L (136-145) 06/28/22 18:04 Potassium 4.0 mmol/L (3.5-5.1) 06/28/22 18:04 Chloride 101 mmol/L (98-107) 06/28/22 18:04 Carbon Dioxide 25 mmol/L (22-29) 06/28/22 18:04 Anion Gap 18.0 (5-19) 06/28/22 18:04 BUN 12 mg/dL (8-23) 06/28/22 18:04 Creatinine 0.8 mg/dL (0.5-0.9) 06/28/22 18:04 GFR Calculation 72.7 mL/min (90-130) L 06/28/22 18:04 Glucose 90 mg/dL (65-115) 06/28/22 18:04 Calculated Osmolality 289 mOsm/kg (285-295) 06/28/22 18:04 Lactic Acid 0.8 mmol/L (0.5-2.2) 06/28/22 18:04 Calcium 9.7 mg/dL (8.5-10.5) 06/28/22 18:04 Total Bilirubin 0.2 mg/dL (0.15-1.2) 06/28/22 18:04 AST 16 U/L (0-32) 06/28/22 18:04 ALT 22 U/L (0-33) 06/28/22 18:04 Alkaline Phosphatase 49 U/L (35-105) 06/28/22 18:04 C-Reactive Protein 23.0 mg/L (0.0-4.9) H 06/28/22 18:04 Total Protein 7.5 g/dL (6.6-8.7) 06/28/22 18:04 Albumin 3.9 g/dL (3.5-5.2) 06/28/22 18:04 Globulin 3.6 g/dL (1.3-4.6) 06/28/22 18:04 Discharge Plan Discharge Patient Disposition: Home Clinical Impression: 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, Severe arterial insufficiency of right lower extremity Condition: Stable Prescriptions: New hydrocodone-acetaminophen 5-325 mg tablet 1 tab PO Q6H PRN (Reason: pain) Qty: 14 0RF No Action fenofibrate nanocrystallized 145 mg tablet 145 mg PO DAILY baclofen 20 mg tablet 20 mg PO TID hydrochlorothiazide 25 mg tablet 25 mg PO DAILY losartan 100 mg tablet 100 mg PO DAILY diclofenac sodium 50 mg tablet,delayed release (DR/EC) 50 mg PO Q12H PRN (Reason: pain) Qty: 20 0RF bupropion HCl 100 mg tablet sustained-release 12 hr 100 mg PO BID acetaminophen 325 mg Tablet 650 mg PO Q6H PRN (Reason: Mild/Mod Pain Or Temp >/= 101) Qty: 100 0RF amlodipine 10 mg Tablet 10 mg PO DAILY Qty: 30 0RF metoprolol tartrate 50 mg Tablet 50 mg PO BID@0900,2100 Qty: 60 0RF Discharge Orders: Discharge ED (Routine); Ordered 06/28/22 Ordered By: Maryana Meeks Referrals: Tracey Mariano DO [Primary Care Provider] - Activity Restrictions/Additional Instructions: As we have discussed I have consulted with Dr. Wills who stated he will talk to interventional cardiology tomorrow try to set you up for an arterial angiogram to help restore improved flow to your lower leg. He should be in contact with you tomorrow in regards to this. In the meantime you can continue to follow-up with wound care. You need to return to the emergency department for worsening or severe pain, redness or swelling surrounding the toe or spreading into the foot and up the leg, fevers, or any other concerns you may have. Coding Level of Care Code ED Laundry Or Dry Cleaners Counter Clerk for Lázaro Fwderrek Exam Detailed
[2022-06-28 16:58] VITALS: RESP 16; O2SAT 98
[2022-06-28] MEDS: ondansetron 2 mg/ML SDV 2 mL 4 MG IVP (16:58)
[2022-06-28] MEDS: morphine 4 mg/mL SDV 1 mL IVP ×2 (16:58→19:20)
[2022-06-28] MEDS: piperacillin-tazobactam 3.375 GM in sodium chloride 0.9% (plus) 50 ML IV (18:06)
[2022-06-28] MEDS: vancomycin 1,000 MG in sodium chloride 0.9% 250 ML 250 MG IV (18:06)
[2022-06-28 18:19] LABS: Basophils % 0.5 %; Eosinophils # 0.1 10^3/uL (0.0-0.8); Eosinophils % 0.9 %; Hemoglobin 13.6 g/dL (11.5-15.3); Lymphocytes % 26.1 %; Mean Corpuscular HGB Conc 30.9 g/dL (30.0-36.0); Mean Corpuscular Hemoglobin 28.9 pg (28.0-34.0); Mean Corpuscular Volume 93.4 fl (81-99); Mean Platelet Volume 9.8 fL (7.4-10.4); Monocytes # 0.5 10^3/uL (0.2-0.9); Monocytes % 6.1 %; Neutrophils # 5.02 10^3/uL (1.8-7.7); Nucleated Red Blood Cells % 0 %; Platelet Count 352 10^3/cmm (130-400); Red Blood Count 4.71 10^6/uL (4.1-5.3); Red Cell Distribution Width 13.9 % (12.1-15.1); White Blood Count 7.6 10^3/uL (4.0-10.0)
[2022-06-28 18:20] VITALS: BP 163/76; PULSE 88; RESP 16; O2SAT 94
[2022-06-28 18:44] LABS: Lactic Sepsis W/Reflex 0.8 mmol/L (0.5-2.2)
[2022-06-28 19:03] LABS: Alanine Aminotransferase 22 U/L (0-33); Albumin Level 3.9 g/dL (3.5-5.2); Alkaline Phosphatase 49 U/L (35-105); Aspartate Amino Transferase 16 U/L (0-32); Blood Urea Nitrogen 12 mg/dL (8-23); Calcium 9.7 mg/dL (8.5-10.5); Carbon Dioxide 25 mmol/L (22-29); Chloride 101 mmol/L (98-107); Globulin 3.6 g/dL (1.3-4.6); Glomerular Filtration Rate 72.7 mL/min (90-130); Glucose 90 mg/dL (65-115); Osmolality Calculated 289 mOsm/kg (285-295); Sodium 140 mmol/L (136-145); Total Bilirubin 0.2 mg/dL (0.15-1.2); Total Protein 7.5 g/dL (6.6-8.7)
[2022-06-28 19:20] VITALS: RESP 16; O2SAT 98
== END 2022-06-28 20:33 | disposition home or self-care (01) ==
PROVIDERS: Emergency Provider Physician Assistant; PCP Family Medicine
DX: L97.513 Non-pressure chronic ulcer of other part of right foot with necrosis of muscle (principal); I77.1 Stricture of artery; I10 Essential (primary) hypertension; E78.5 Hyperlipidemia, unspecified; F17.210 Nicotine dependence, cigarettes, uncomplicated
CPT/HCPCS: 73660; 80053; 83605; 85025; 86140; 87040; 93926; 96365; 96366; 96367; 96375; 96376; 99285; J2270; J2405; J2543; J3370; J7050

== ENCOUNTER 2022-07-04 10:49 | Emergency (ER) | payer BC, SELFPAY ==
[2022-07-04 11:00] VITALS: BP 181/91; PULSE 91; RESP 18; TEMP 36.8; O2SAT 95; BMI 31.6
--- NOTE | 2022-07-04 11:20 | XRR_ITS ---
PROCEDURE INFORMATION: Exam: XR Right Toe(s) Exam date and time: 07/04/2022 11:48 AM Age: 61 years old Clinical indication: Condition or disease; Other: Necrosis TECHNIQUE: Imaging protocol: Radiologic exam of the Right toes. Views: Minimum 2 views. Total images: 3 COMPARISON: CR XR toe RT min 2V [id number] 06/28/2022 4:22 PM FINDINGS: Bones/joints: No acute fracture nor subluxation. No osseous erosion nor periosteal reaction. Soft tissues: Soft tissue defect on distal 5th digit of right foot. XR/XR toe RT min 2V [id number] IMPRESSION: 1. Soft tissue defect on distal 5th digit of right foot. 2. No acute osseous pathology.
--- NOTE | 2022-07-04 11:21 | ED_ITS ---
Documented by User: YAKELIN Stout 07/04/22 14:57 HPI - Extremity Problem General: Chief complaint: General Medical Stated complaint: right foot hurting Time Seen by Provider: 07/04/22 10:51 Source: patient Mode of arrival: wheelchair Limitations: no limitations History of Present Illness: Patient is a 61-year-old female who presents to ED today with complaint of bilateral foot pain and worsening necrosis to her right fifth toe. Patient was seen here by myself approximately a week ago. At that visit she was not tachycardic or febrile. Labs were essentially normal. XR showing no osteonecrosis. US arterial showing severe vascular insufficiency but patient had monophasic flow throughout-exam was suspicious for more proximal stenosis. I had spoken to Dr. Wills who was able to speak to Dr. Wood and get her set up for arterial angiogram and cath on 07/06. She is back now stating she feels like symptoms are worse. She states she has not had any follow up foll owing her last ED visit. MD Complaint: extremity pain Onset (ago): day(s) Pain Consistency: constant Location: left, right and lower extremity Radiation: none Relieving factors: nothing Exacerbating factors: nothing Associated symptoms: Reports no associated symptoms; Deny chest pain or fever(s) Review of Systems Const: Denies: fever(s), chills, body aches, fatigue or malaise Card: Denies: chest pain Resp: Denies: dyspnea GI: Denies: abdominal pain Musc: Reports: extremity pain; Denies: neck pain or back pain Skin/Breast: Reports: other (R 5th toe necrosis) Neuro: Reports: sensory changes; Denies: headache(s) PFS ED PFSH: Medical History Bilateral hand pain Chronic left upper quadrant pain Chronic pain syndrome Chronic right lower quadrant pain Essential (primary) hypertension Hyperlipidemia, unspecified Insomnia, unspecified Peripheral neuropathy, idiopathic PVD (peripheral vascular disease) Smoking Tobacco use Surgical History H/O oophorectomy S/P knee surgery LEFT S/P shoulder surgery LEFT X2 RIGHT X1 Family History Mother Diabetes Anesthesia complication Hypertension Brother Diabetes Cancer LUNG AND KIDNEY Father Cancer Social History Smoking and tobacco status: current every day smoker cigarettes Packs smoked per day: 1 Quit status (tobacco): considering quitting Second hand smoke exposure: No Smoking risk assessment/counseling performed?: No Alcohol intake: never Desire information about alcohol rehabilitation?: No Counseling given: No Desire information about substance/drug rehabilitation?: No Counseling given: No Physical Exam Const: COMMON NORMALS: no acute distress, no limitations and alert GENERAL APPEARANCE: cooperative Resp: COMMON NORMALS: normal respiratory effort and clear to auscultation bilaterally AUSCULTATION: clear to auscultation bilaterally Cardio: COMMON NORMALS: regular rate and regular rhythm RATE: regular rate RHYTHM: regular rhythm Extremity: RIGHT LOWER EXTREMITY: Yes foot & digits LEFT LOWER EXTREMITY: Yes foot & digits OTHER: pts R 5th toe necrosis has worsened since I last evaluated her; she does report she recently injured/stubbed the toe; still foul smelling; no significant surrounding cellulitis; she now complains of pain to the L foot; she has the start of a blister to the lateral aspect of her L great toe; she has doppler- able DP/PT pulses Neuro: SENSORIUM/ORIENTATION: Yes alert Course ED course: Care was transferred to Dr. Yan as I had to leave department temporarily for an appointment. I had spoken to Dr. Arcos who stated because she still has pulses bilaterally then from a vascular standpoint there was no need to admit patient as he wouldn't do procedure until tomorrow anyway and she is already scheduled for the . Vital Signs: Vital signs: Vital Signs Temperature 98.2 F 07/04/22 11:00 Pulse Rate 92 07/04/22 14:49 Respiratory Rate 22 H 07/04/22 14:49 Blood Pressure 190/99 07/04/22 14:49 Pulse Oximetry 96 07/04/22 14:49 Oxygen Delivery Me thod 07/04/22 12:28 MDM - Extremity (Nontraumatic) Medical Decision Making Please see Dr. Yan's note for MDM Lab Data : 07/04/22 12:02 07/04/22 12:02 Radiology Impressions Toe X-Ray 07/04/22 11:20 IMPRESSION: 1. Soft tissue defect on distal 5th digit of right foot. 2. No acute osseous pathology. Laboratory Results WBC 8.2 10^3/uL (4.0-10.0) 07/04/22 12:02 RBC 4.40 10^6/uL (4.1-5.3) 07/04/22 12:02 Hgb 12.7 g/dL (11.5-15.3) 07/04/22 12:02 Hct 40.0 % (37.0-47.0) 07/04/22 12:02 MCV 90.9 fl (81-99) 07/04/22 12:02 MCH 28.9 pg (28.0-34.0) 07/04/22 12:02 MCHC 31.8 g/dL (30.0-36.0) 07/04/22 12:02 RDW 14.0 % (12.1-15.1) 07/04/22 12:02 Plt Count 331 10^3/cmm (130-400) 07/04/22 12:02 MPV 9.9 fL (7.4-10.4) 07/04/22 12:02 Neut % (Auto) 62.2 % 07/04/22 12:02 Lymph % (Auto) 28.9 % 07/04/22 12:02 [place] % (Auto) 6.0 % 07/04/22 12:02 Eos % (Auto) 2.0 % 07/04/22 12:02 Baso % (Auto) 0.5 % 07/04/22 12:02 Neut # (Auto) 5.11 10^3/uL (1.8-7.7) 07/04/22 12:02 Lymph # (Auto) 2.4 10^3/uL (0.8-4.8) 07/04/22 12:02 [place] # (Auto) 0.5 10^3/uL (0.2-0.9) 07/04/22 12:02 Eos # (Auto) 0.2 10^3/uL (0.0-0.8) 07/04/22 12:02 Baso # (Auto) 0.0 10^3/uL (0.0-0.1) 07/04/22 12:02 Nucleated RBC % (auto) 0 % 07/04/22 12:02 Nucleated RBCs # 0.0 /100WBC 07/04/22 12:02 Sodium 136 mmol/L (136-145) 07/04/22 12:02 Potassium 3.8 mmol/L (3.5-5.1) 07/04/22 12:02 Chloride 100 mmol/L (98-107) 07/04/22 12:02 Carbon Dioxide 26 mmol/L (22-29) 07/04/22 12:02 Anion Gap 13.8 (5-19) 07/04/22 12:02 BUN 9 mg/dL (8-23) 07/04/22 12:02 Creatinine 0.7 mg/dL (0.5-0.9) 07/04/22 12:02 GFR Calculation 84.8 mL/min (90-130) L 07/04/22 12:02 Glucose 91 mg/dL (65-115) 07/04/22 12:02 Calculated Osmolality 280 mOsm/kg (285-295) L 07/04/22 12:02 Calcium 8.9 mg/dL (8.5-10.5) 07/04/22 12:02 Total Bilirubin 0.2 mg/dL (0.15-1.2) 07/04/22 12:02 AST 21 U/L (0-32) 07/04/22 12:02 ALT 28 U/L (0-33) 07/04/22 12:02 Alkaline Phosphatase 49 U/L (35-105) 07/04/22 12:02 C-Reactive Protein 13.6 mg/L (0.0-4.9) H 07/04/22 12:02 Total Protein 7.8 g/dL (6.6-8.7) 07/04/22 12:02 Albumin 3.8 g/dL (3.5-5.2) 07/04/22 12:02 Globulin 4.0 g/dL (1.3-4.6) 07/04/22 12:02 Discharge Plan Discharge Patient Disposition: Home Clinical Impression: Severe arterial insufficiency of right lower extremity, Bilateral leg pain, Dry gangrene Condition: Stable Prescriptions: New oxycodone 5 mg tablet 5 mg PO Q4H PRN (Reason: pain) Qty: 30 0RF Discontinued hydrocodone-acetaminophen 5-325 mg tablet 1 tab PO Q6H PRN (Reason: pain) Qty: 14 0RF No Action fenofibrate nanocrystallized 145 mg tablet 145 mg PO DAILY baclofen 20 mg tablet 20 mg PO TID alprazolam 0.5 mg tablet 0.25 mg PO TID PRN (Reason: Anxiety) Qty: 15 0RF hydrochlorothiazide 25 mg tablet 25 mg PO DAILY losartan 100 mg tablet 100 mg PO DAILY diclofenac sodium 50 mg tablet,delayed release (DR/EC) 50 mg PO Q12H PRN (Reason: pain) Qty: 20 0RF bupropion HCl 100 mg tablet sustained-release 12 hr 100 mg PO BID acetaminophen 325 mg Tablet 650 mg PO Q6H PRN (Reason: Mild/Mod Pain Or Temp >/= 101) Qty: 100 0RF amlodipine 10 mg Tablet 10 mg PO DAILY Qty: 30 0RF metoprolol tartrate 50 mg Tablet 50 mg PO BID@0900,2100 Qty: 60 0RF aspirin 81 mg tablet,delayed release (DR/EC) 81 mg PO DAILY Qty: 90 3RF Plavix 75 mg tablet 75 mg PO DAILY Qty: 90 3RF Discharge Orders: Discharge ED (Routine); Ordered 07/04/22 Ordered By: Jorge A Yan Referrals: Tracey Mariano DO [Primary Care Provider] - Discharge Diet: Usual diet Discharge Activity: Increase activity as tolerated Patient Instructions: Peripheral Vascular Disease (ED), Opioid Safety Activity Restrictions/Additional Instructions: Thank you for visiting the emergency department. You were seen and evaluated for bilateral leg pain. The exact cause of your symptoms is unclear. You do have evidence of dry gangrene which has progressed involving toe. Given that you are scheduled for procedure and we managed to improve your symptoms I believe that outpatient management is appropriate. I will prescribe oxycodone, do not take hydrocodone anymore. Please use this responsibly as discussed. Please return to the emergency department for uncontrolled symptoms, new infectious symptoms, or anything else that you are concerned about and feel needs emergency department evaluation. Sign Out Sign Out Data: Patient Sign Out occurred on 07/04/22 at 12:53. Patient's care was discussed, and care was transferred from to Jorge A Yan MD. Coding Level of Care Code ED Distribution Operation Supervisor for Chg Fwd Exam Expanded Problem Focused Documented by User: Jorge A Yan MD 07/10/22 20:34 HPI - Extremity Problem General: Chief complaint: General Medical Stated complaint: right foot hurting Time Seen by Provider: 07/04/22 10:51 PFSH ED PFSH: Medical History Bilateral hand pain Chronic left upper quadrant pain Chronic pain syndrome Chronic right lower quadrant pain Essential (primary) hypertension Hyperlipidemia, unspecified Insomnia, unspecified Peripheral neuropathy, idiopathic PVD (peripheral vascular disease) Smoking Tobacco use Surgical History H/O oophorectomy S/P knee surgery LEFT S/P shoulder surgery LEFT X2 RIGHT X1 Family History Mother Diabetes Anesthesia complication Hypertension Brother Diabetes Cancer LUNG AND KIDNEY Father Cancer Social History Smoking and tobacco status: current every day smoker cigarettes Packs smoked per day: 1 Quit status (tobacco): considering quitting Second hand smoke exposure: No Smoking risk assessment/counseling performed?: No Alcohol intake: never Desire information about alcohol rehabilitation?: No Counseling given: No Desire information about substance/drug rehabilitation?: No Counseling given: No Course Vital Signs: Vital signs: Vital Signs Temperature 98.2 F 07/04/22 11:00 Pulse Rate 92 07/04/22 14:49 Respiratory Rate 22 H 07/04/22 14:49 Blood Pressure 190/99 07/04/22 14:49 Pulse Oximetry 96 07/04/22 14:49 Oxygen Delivery Me thod 07/04/22 12:28 MDM - Extremity (Nontraumatic) Medical Decision Making Please see Dr. Yan's note for MDM I discussed this case with YAKELIN Stout. I reviewed documentation, labs, imaging. Personally saw and evaluate the patient. Patient had improvement with analgesia in the emergency department prefers to go home. She has close outpatient follow-up scheduled and I do not believe that it would provide meaningful difference to admit the patient for 1 day sooner intervention. She does not have evidence of wet gangrene. The results of ED evaluation were discussed with the patient including prescriptions and/or symptomatic cares (if applicable) including appropriate and responsible use, followup plan, and return precautions. The patient verbalized understanding and felt safe for discharge. Patient discharged in satisfactory condition. Jorge A Yan MD Emergency Medicine Lab Data : 07/04/22 12:02 07/04/22 12:02 Radiology Impressions Toe X-Ray 07/04/22 11:20
[2022-07-04 12:09] LABS: Basophils % 0.5 %; Eosinophils # 0.2 10^3/uL (0.0-0.8); Hemoglobin 12.7 g/dL (11.5-15.3); Lymphocytes # 2.4 10^3/uL (0.8-4.8); Lymphocytes % 28.9 %; Mean Corpuscular HGB Conc 31.8 g/dL (30.0-36.0); Mean Corpuscular Hemoglobin 28.9 pg (28.0-34.0); Mean Corpuscular Volume 90.9 fl (81-99); Mean Platelet Volume 9.9 fL (7.4-10.4); Monocytes # 0.5 10^3/uL (0.2-0.9); Neutrophils # 5.11 10^3/uL (1.8-7.7); Neutrophils % 62.2 %; Nucleated Red Blood Cells % 0 %; Platelet Count 331 10^3/cmm (130-400); White Blood Count 8.2 10^3/uL (4.0-10.0)
[2022-07-04 12:28] VITALS: BP 196/92; PULSE 96; RESP 16; RESP 20; O2SAT 96
[2022-07-04] MEDS: morphine 4 mg/mL SDV 1 mL IVP (12:28)
[2022-07-04] MEDS: ondansetron 2 mg/ML SDV 2 mL 4 MG IVP (12:28)
[2022-07-04 12:56] LABS: Alanine Aminotransferase 28 U/L (0-33); Albumin Level 3.8 g/dL (3.5-5.2); Alkaline Phosphatase 49 U/L (35-105); Anion Gap 13.8 (5-19); Aspartate Amino Transferase 21 U/L (0-32); Blood Urea Nitrogen 9 mg/dL (8-23); C Reactive Protein 13.6 mg/L (0.0-4.9); Calcium 8.9 mg/dL (8.5-10.5); Carbon Dioxide 26 mmol/L (22-29); Chloride 100 mmol/L (98-107); Glomerular Filtration Rate 84.8 mL/min (90-130); Glucose 91 mg/dL (65-115); Osmolality Calculated 280 mOsm/kg (285-295); Potassium 3.8 mmol/L (3.5-5.1); Sodium 136 mmol/L (136-145); Total Bilirubin 0.2 mg/dL (0.15-1.2); Total Protein 7.8 g/dL (6.6-8.7)
[2022-07-04 13:37] VITALS: RESP 16
[2022-07-04] MEDS: oxyCODONE 5 mg IR Tab/Cap PO (13:37)
[2022-07-04 14:49] VITALS: BP 190/99; PULSE 92; RESP 22; O2SAT 96
--- NOTE | 2022-07-05 11:08 | DCPLANNER ---
Addendum entered by Wendy Preciado 07/14/22 15:58: Patient had an appointment scheduled for 07.07.22 with [facility]ound Care, this appointment has been cancelled. Clinic is following up with patient and will reschedule appointment if patient still needs appointment. Original Note: manager benefit had message to schedule a follow up appointment for patient with wound care. manager benefit sent patients information to the front office staff at [facility]. Patients information will be printed and reviewed. Clinic will call patient with appointment information.
== END 2022-07-04 14:51 | disposition home or self-care (01) ==
PROVIDERS: Physician Assistant; Emergency Provider Emergency Medicine; PCP Family Medicine
DX: I96 Gangrene, not elsewhere classified (principal); I77.1 Stricture of artery; M79.605 Pain in left leg; M79.604 Pain in right leg; Z79.82 Long term (current) use of aspirin; Z79.02 Long term (current) use of antithrombotics/antiplatelets; I10 Essential (primary) hypertension; E78.5 Hyperlipidemia, unspecified; F17.210 Nicotine dependence, cigarettes, uncomplicated
CPT/HCPCS: 73660; 80053; 85025; 86140; 96374; 96375; 99284; J2270; J2405

== ENCOUNTER 2022-07-06 18:32 | Observation (INO) | payer BC, SELFPAY ==
[2022-07-06] VITALS (20 sets, daily range): BP systolic 154–191; BP diastolic 78–105; PULSE 80–98; RESP 14–24; TEMP 36.7–36.9; O2SAT 92–97; BMI 48.2
--- NOTE | 2022-07-06 09:00 | XACV_ITS ---
Ht: 165 cm Wt: 132 kg BSA: 2.53 m2 Any Known Allergies: No known allergies Gender: Female : 1960 Exam Type: Invasive Peripheral Vascular Procedure(s): Procedure Description: Peripheral Cath Diagnostic Procedure Procedure Description: Abdominal aortic angiography Procedure Description: Lower extremities' angiography Exam Priority: Routine Abdominal Diagnostic Findings Distal abdominal aorta: Totally occluded. Lower Extremity Diagnostic Findings INDICATION: 61-year-old woman with past medical history of hypertension, smoking, diabetes who has gangrene of right little toe and was found to have severe peripheral artery disease with CASTILLO of 0.36. Duplex ultrasound showed proximal critical disease on the right lower extremity. Patient now has also been complaining of bilateral lower leg pain at rest. Patient was scheduled for peripheral angiogram urgently. Right lower extremity findings: Right common iliac artery: Totally occluded Right external iliac artery: Reconstitutes via collaterals. Patent from mid to distal segment. Right common femoral artery: Has mild to moderate disease however is patent. Right SFA: Patent Right profunda: Patent and Right popliteal artery: Patent Right TP segment: Patent Right anterior tibial artery: Patent Right posterior tibial artery Right peroneal artery: Patent . Left lower extremity findings: Left common iliac artery: Totally occluded. Left external iliac artery: Totally occluded with reconstitution via collaterals and distal vessel. Left common femoral artery is patent. Runoff not performed on the left lower extremity.. Conclusions Severe peripheral artery disease. Totally occluded distal aorta and bilateral common iliac arteries. Recommendations We will refer her to vascular surgery as soon as possible for revascularization.. Continue aspirin and Plavix. Aggressive risk factor modification. Access Site Site: Left Femoral artery Sheath Size: 6 Fr Hemost... Method: Manual Compression Hemost... Success: Successful Site: Right Femoral artery Sheath Size: 4 Fr Hemost... Method: Manual Compression Hemost... Success: Successful Procedure Details Findings Procedure Consent Obtained. Admit Source: Out Patient. Pre-Procedure Time Out. Identified patient by full name and date of as verbalized by the patient/guarantor. Does the consent match the physician's order: Yes. Accurate & Complete Informed Consent: Yes. Inpatient/Outpatient History & Physical on Chart: Yes. If H&P is completed, is and addenduem needed: No; If yes, is the addendum complete: N/A. Visualize and Verify Site with Patient/Guarantor: N/A. Relevant Radiology Images available: N/A. The risks, benefits, and alternatives of sedation and/or procedure were discussed by physician. The patient agrees to continue. Procedure started. IV Site on Arrival: 20 gauge in the left anticubital. IV Fluids: 0.9% NaCl at KVO. 0 mL infused prior to laborer road. Pre Procedural Pulses: bilateral posterior tibial was Doppled. Pre Procedural Pulses: bilateral dorsalis pedis was Doppled. Oxygen started at 2liters/min via nasal canula. bilateral groins was prepped with chloroprep then draped in the usual sterile fashion. Physician notified. Baseline sample Acquired. HR: 99 BPM. Physician arrived. Current diagnosis: Peripheral arterial disease. Physician scrubbed in. Time out performed with cath team. Ultrasound obtained to assist with arterial access. Lidocaine 1% infiltrated to the left groin. Arterial access obtained. [place] wire advanced through sheath, seated in distal aorta. A 5Fr UFcatheter in over glide wire, seated in distal aorta. [place] wire out. Abdominal aortogram performed in AP @ 10 mL/sec for a total of 30 mL. Abdominal aortogram using DSA 6f/s performed in AP @ 10 mL/sec for a total of 20 mL. Side port of sheath attached to Normal Saline flush at KVO to maintain patency. Ultrasound obtained to assist with second arterial access. Lidocaine 1% infiltrated to the right groin. Arterial access obtained. UF Catheter removed over the glide wire through the left side 6fr sheath. Right leg selected and arteriogram with runoff performed @ 10 mL/sec for a total of 30 mL through 4fr sheath. [place] wire is out through left 6fr sheath. Post Procedure: Pulses reassessed and unchanged. PERRLA. Strong, equal hand certified peer specialist bilaterally. No VTE prophylaxis required. Medication's Wasted: Heparin = 1000unit. Total IV fluids: 52 mL. Post-op diagnosis: Severe PAD, Total occlusion of right common femoral artery. Complications: None. Estimated blood loss: 5mL-10mL. Responsiveness - Normal response to verbal stimuli; alert and oriented, PERRLA. Airway - Unaffected, no intervention required; spontaneous ventilation. Circulation: W/N/L, pulses unchanged. Nausea/Vomiting: N/A. A Manual Compression was successful obtaining hemostatsis at the Left Femoral artery insertion site. A Manual Compression was successful obtaining hemostatsis at the Right Femoral artery insertion site. Sheath(s) removed and manual pressure held until hemostasis was achieved. Sterile 4x4 and Op-site applied to the puncture site. No oozing or hematoma noted. Post sheath removal instructions were given and the patient verbalized understanding. Procedure completed. Patient transferred by bed to 1st floor. Vital chart was stopped. Procedure Medications Start: 9:47 AM Stop: 9:47 AM Medication: Versed Amount: 1 mg Route: I.V. Start: 9:47 AM Stop: 9:47 AM Medication: Fentanyl Amount: 50 mcg Route: I.V. Start: 9:56 AM Stop: 9:56 AM Medication: Versed Amount: 1 mg Route: I.V. Start: 10:05 AM Stop: 10:05 AM Medication: Fentanyl Amount: 50 mcg Route: I.V. Start: 10:08 AM Stop: 10:08 AM Medication: Versed Amount: 1 mg Route: I.V. Start: 10:14 AM Stop: 10:14 AM Medication: Hydralazine Amount: 10 mg Route: I.V. Start: 10:15 AM Stop: 10:15 AM Medication: Versed Amount: 1 mg Route: I.V. Start: 10:28 AM Stop: 10:28 AM Medication: Fentanyl Amount: 50 mcg Route: I.V. Start: 10:38 AM Stop: 10:38 AM Medication: Fentanyl Amount: 50 mcg Route: I.V. I, the attending physician, have reviewed and verified all procedure medications. Yes, all medications given per verbal order History/Risk Factors Hypertension: Yes Dyslipidemia: Yes Peripheral Arterial Disease (PAD): Yes Obesity: No Renal Disease: No Tobacco Use: Current/Recent(w/in 1 year) Prior Interventions PCI: No CABG: No Valve Surgery: No Report Signatures Finalized by Adolfo Belcher MD on 07/13/2022 12:33 PM
[2022-07-06] MEDS: diphenhydrAMINE 50 mg Capsule PO (09:25)
--- NOTE | 2022-07-06 09:55 | P.HP_ITS ---
Same Day Surgery H&P Indication for Procedure/HPI DATE OF PROCEDURE: July 06, 2022 CHIEF COMPLAINT/INDICATIONFOR SURGICAL PROCEDURE: Peripheral artery disease/right little toe nonhealing wound/gangrene PREOP DIAGNOSIS: Peripheral artery disease/right little toe nonhealing wound/gangrene PLANNED PROCEDURE: Operation Date: 07/06/22 10:00 Proposed Procedures p Peripheral Diagnostic Angiogram 39978,I73.9(Not Applicable) - Adolfo Belcher M.D 61-year-old woman with past medical history of hypertension, smoking, diabetes w ho has gangrene of right little toe and was found to have severe peripheral artery disease with CASTILLO of 0.36. Duplex ultrasound showed proximal critical disease. Patient now has also been complaining of bilateral lower leg pain at rest. Patient was scheduled for peripheral angiogram urgently. ROS CONSTITUTIONAL: No fever chills weight loss or gain or night sweats. [] HEENT: Normocephalic, atraumatic.[] RESPIRATORY: No cough, sputum, hemoptysis or wheezing.[] CARDIOVASCULAR: No shortness of breath, chest pain, PND, orthopnea, lower extremity edema, presyncope or syncope. [] GI: no nausea vomiting diarrhea. [] DIRECTOR OF INSTRUMENTAL MUSIC: No numbness, tingling, weakness or loss of function in any part of the body. [] MUSCULOSKELETAL: Has bilateral leg pain. Medications/Allergies* Home Medications Medication Instructions Recorded Confirmed Type baclofen 20 mg tablet 20 mg PO TID 11/19/19 07/05/22 History fenofibrate nanocrystallized 145 145 mg PO DAILY 11/19/19 07/05/22 History mg tablet hydrochlorothiazide 25 mg tablet 25 mg PO DAILY 03/14/21 07/05/22 History losartan 100 mg tablet 100 mg PO DAILY 03/14/21 07/05/22 History bupropion HCl 100 mg tablet,12 hr 100 mg PO BID 01/22/22 07/05/22 History sustained-release Allergies/Adverse Reactions Allergy/AdvReac Type Severity Reaction Status Date / Time No Known Allergies Allergy Verified 03/03/22 10:04 Current Medications: Generic Name Dose Route Start Last Admin Trade Name Freq PRN Reason Stop Dose Admin Sodium Chloride 1,000 mls @ 50 mls/hr 07/06/22 09:00 07/06/22 09:24 Sodium Chloride 0.9% IV 07/07/22 04:59 Not Given .Q20H ONE Pertinent History/Comorbid Conditions* Medical History Bilateral hand pain Chronic left upper quadrant pain Chronic pain syndrome Chronic right lower quadrant pain Essential (primary) hypertension Hyperlipidemia, unspecified Insomnia, unspecified Peripheral neuropathy, idiopathic PVD (peripheral vascular disease) Smoking Tobacco use Surgical History (Updated 11/19/19 @ 14:39 by Selina Webb MD) H/O oophorectomy S/P knee surgery LEFT S/P shoulder surgery LEFT X2 RIGHT X1 Family History (Updated 11/19/19 @ 10:03 by Nabila Velasco LPN) Diabetes Mother Brother Anesthesia complication Mother Cancer Brother LUNG AND KIDNEY Father Hypertension Mother Social History Smoking and tobacco status: current every day smoker cigarettes Packs smoked per day: 1 Quit status (tobacco): considering quitting Second hand smoke exposure: No Smoking risk assessment/counseling performed?: No Alcohol intake: never Desire information about alcohol rehabilitation?: No Counseling given: No Desire information about substance/drug rehabilitation?: No Counseling given: No Pertinent Exam Findings alert, oriented x 3, clear to auscultation bilaterally and regular rate & rhythm Bilateral lower extremity pulses are not palpable. Conscious Sedation Assessment PATIENT ASSESSED PRIOR TO SEDATION, WITH NO CHANGE NOTED: Yes AIRWAY EVAL/ANESTHESIA PLAN: normal airway, see other exam findings, ASA III, Local Anesthesia, Risks, benefits & alternatives of sedation and/or procedure discussed and Patient agrees to continue as planned Recommendations Surgery/Procedure today (Peripheral angiogram with possible percutaneous interve ntion) Coding Level of Care Code Acute Cytologist for Lázaro De La Fuente
[2022-07-06] MEDS: losartan 50 mg Tablet 100 MG PO (12:25)
[2022-07-06] MEDS: amlodipine 10 mg Tablet PO (12:26)
--- NOTE | 2022-07-06 15:19 | PC.NURSE ---
Patient walked to BR using standard walker. No bleeding from femoral sites. Pedal pulses easily found with doppler.
[2022-07-06] MEDS: ALPRAZolam 0.5 mg Tablet 0.25 MG PO (16:06)
--- NOTE | 2022-07-06 16:31 | PC.NURSE ---
0.25 mg alprazolam (1/2 tab) wasted at bedside with Faith Sheriff RN.
[2022-07-06] MEDS: heparin drip 25,000 UNIT/500 ML PREMIX 23 UNIT IV (19:23)
[2022-07-06] MEDS: oxyCODONE 5 mg IR Tab/Cap PO (20:14)
[2022-07-06] MEDS: temazepam 15 mg Capsule PO (20:44)
[2022-07-06 21:47] LABS: Platelet Count 291 10^3/cmm (130-400)
[2022-07-06 22:10] LABS: Partial Thromboplastin Time 30.2 SECONDS (23.9-36.7)
[2022-07-07] VITALS (9 sets, daily range): BP systolic 155–187; BP diastolic 86–102; PULSE 81–97; RESP 16–20; TEMP 36.6–36.7; O2SAT 92–95
[2022-07-07] MEDS: heparin 5,000 unit/mL INJ 1 mL IV (00:25)
[2022-07-07] MEDS: sodium chloride 0.9% 1,000 ML 100 ML IV (00:31)
[2022-07-07] MEDS: oxyCODONE 5 mg IR Tab/Cap PO ×3 (02:46→11:36)
[2022-07-07] MEDS: ALPRAZolam 0.5 mg Tablet 0.25 MG PO ×2 (02:53→10:51)
[2022-07-07 04:13] LABS: Albumin Level 3.6 g/dL (3.5-5.2); Alkaline Phosphatase 51 U/L (35-105); Anion Gap 11.9 (5-19); Blood Urea Nitrogen 12 mg/dL (8-23); Calcium 9.1 mg/dL (8.5-10.5); Carbon Dioxide 30 mmol/L (22-29); Chloride 101 mmol/L (98-107); Globulin 3.2 g/dL (1.3-4.6); Glomerular Filtration Rate 56.2 mL/min (90-130); Glucose 93 mg/dL (65-115); Osmolality Calculated 287 mOsm/kg (285-295); Potassium 3.9 mmol/L (3.5-5.1); Sodium 139 mmol/L (136-145); Total Bilirubin 0.2 mg/dL (0.15-1.2); Total Protein 6.8 g/dL (6.6-8.7)
[2022-07-07 04:50] LABS: Alanine Aminotransferase 24 U/L (0-33); Aspartate Amino Transferase 19 U/L (0-32)
[2022-07-07 05:18] LABS: Partial Thromboplastin Time 90.9 SECONDS (23.9-36.7)
[2022-07-07] MEDS: losartan 50 mg Tablet 100 MG PO (08:09)
[2022-07-07] MEDS: amlodipine 10 mg Tablet PO (08:10)
--- NOTE | 2022-07-07 09:43 | PM.DCS ---
Discharge Providers Date of Admission: 07/06/22 18:32 Date of Discharge: July 07, 2022 Attending Provider at Admission: Adolfo Belcher M.D Attending Provider at Discharge: Adolfo Belcher M.D Primary Care Provider: Tracey Mariano DO Reason for Visit Reason for Visit: I73.9 Brief History: 61-year-old woman with past medical history of hypertension, smoking, diabetes who has gangrene of right little toe and was found to have severe peripheral artery disease with CASTILLO of 0.39.? Duplex ultrasound showed proximal critical disease.? Patient now has also been complaining of bilateral lower leg pain at rest.? Patient was scheduled for peripheral angiogram urgently. 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 Reconstitution of flow was noted via collaterals. On right side reconstitution of flow was in external iliac artery. On the left side it was in distal external iliac artery. 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 We stopped here as patient would need vascular surgery evaluation and intervention. She was observed overnight in the hospital. Patient has on and off resting atypical pain. There could be a component of ischemic discomfort as CASTILLO is low and has poor blood flow. Family requested inpatient transfer however vascular surgery at [facility] recommended outpatient follow-up and work-up after we called the transfer center. We will send referral to [facility] in [place] for urgent outpatient work-up and revascularization. Patient started on aspirin and Plavix. Physical Exam Narrative: GENERAL: Patient is alert, awake and oriented x3. [] NECK: No jugular vein distension. [] HEENT: No cyanosis. No icterus. No pallor. [] HEART: Regular S1 and S2. No murmur, rub or gallop. [] LUNGS: Clear to auscultate bilaterally. [] ABDOMEN: Soft, nontender and nondistended. Positive bowel sounds. No guarding, rebound or tenderness. [] CENTRAL NERVOUS SYSTEM: Grossly nonfocal. [] EXTREMITIES: Pulses not palpable bilaterally. He has gangrene of right fifth toe. 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5-0.9) H 07/07/22 03:32 GFR Calculation 56.2 mL/min (90-130) L 07/07/22 03:32 Glucose 93 mg/dL (65-115) 07/07/22 03:32 Calculated Osmolality 287 mOsm/kg (285-295) 07/07/22 03:32 Calcium 9.1 mg/dL (8.5-10.5) 07/07/22 03:32 Total Bilirubin 0.2 mg/dL (0.15-1.2) 07/07/22 03:32 AST 19 U/L (0-32) 07/07/22 03:32 ALT 24 U/L (0-33) 07/07/22 03:32 Alkaline Phosphatase 51 U/L (35-105) 07/07/22 03:32 Total Protein 6.8 g/dL (6.6-8.7) 07/07/22 03:32 Albumin 3.6 g/dL (3.5-5.2) 07/07/22 03:32 Globulin 3.2 g/dL (1.3-4.6) 07/07/22 03:32 Vitals Last Vital Signs Temp 97.9 F 07/07/22 08:00 Pulse 81 07/07/22 08:00 Resp 18 07/07/22 08:10 BP 155/86 07/07/22 08:00 Pulse Ox 92 07/07/22 08:10 O2 Del Method 07/07/22 08:00 Discharge Plan Discharge Patient Disposition: Home Condition: Stable Prescriptions: New aspirin 81 mg tablet,delayed release (DR/EC) 81 mg PO DAILY Qty: 90 3RF Plavix 75 mg tablet 75 mg PO DAILY Qty: 90 3RF Continued fenofibrate nanocrystallized 145 mg tablet 145 mg PO DAILY baclofen 20 mg tablet 20 mg PO TID hydrochlorothiazide 25 mg tablet 25 mg PO DAILY losartan 100 mg tablet 100 mg PO DAILY diclofenac sodium 50 mg tablet,delayed release (DR/EC) 50 mg PO Q12H PRN (Reason: pain) Qty: 20 0RF bupropion HCl 100 mg tablet sustained-release 12 hr 100 mg PO BID acetaminophen 325 mg Tablet 650 mg PO Q6H PRN (Reason: Mild/Mod Pain Or Temp >/= 101) Qty: 100 0RF amlodipine 10 mg Tablet 10 mg PO DAILY Qty: 30 0RF metoprolol tartrate 50 mg Tablet 50 mg PO BID@0900,2100 Qty: 60 0RF oxycodone 5 mg tablet 5 mg PO Q4H PRN (Reason: pain) Qty: 30 0RF No Action alprazolam 0.5 mg tablet 0.25 mg PO TID PRN (Reason: Anxiety) Qty: 15 0RF Discharge Orders: Discharge Order (Routine); Ordered 07/07/22 Ordered By: Aodlfo Belcher Referrals: Sharon Tong FNP [Nurse Practitioner] - 07/13/22 10:15 am Discharge Diet: Cardiac and Diabetic Patient Instructions: Alprazolam (By mouth), Aspirin (By mouth), Clopidogrel (By mouth) (Plavix), Opioid Safety, Post Angiogram Home Care Instructions Discharge Attestations Time Spent in Discharge Care*: greater than 30 min Quality Metrics Clinical Quality Measures [ No reported AMI, CVA or VTE this stay] Coding Level of Care Code Acute Chg FW DC note
--- NOTE | 2022-07-07 10:18 | PC.CHAP ---
Pastoral Care Encounter/Spiritual Assessment Type of Contact [] Declined director oracle database visit [] Patient/Family/Request visit [] Outpatient visit [] Follow-up visit [] Physician referral [] Code/Alert [x] Routine visit [] Staff referral [] Actively dying [] Patient sleeping [] Family support [] [] Out of room [] Palliative care [] [x] Receiving care in room [] Pre-surgical visit [] Trauma [] Long length of stay [] ICU visit [] Other: Relational/Emotional Strength [x] Patient feels connected with others/family/visitors/staff [] Distress [] Loneliness/isolation [] Abandonment Spirituality of Patient [x] Person of Lizette [] Attends Alevism of their Lizette [x] Believes in Prayer [] Reads Bible or Anabaptism materials [] There are Spiritual issues to be addressed Real Estate Closing Coordinator Interventions [x] Prayer [x] Active listening [x] Non-anxious presence [x] Spiritual/emotional support [] Crisis/trauma care [x] Spiritual counseling [] Bereavement support [] Provided bereavement packet [] Provided Bible/devotional materials [] Provided toy/stuffed animal, coloring book to patient or family member [] Provided Communion [] Anointing/[place] [] Salvation [x] Completed spiritual assessment [] Other: Impact on Illness or Injury [] Angry [] Fearful [x] Anxious [] Often cries [] Exhaustion [] Unable to work [] Unable to attend buddhist [] Unable to walk/stand [] Unable to read [] Unable to drive [] Unable to eat/drink [] Unable to sleep [] Unable to be with family [] Patient intubated [] Other: Summary dealing with heart and back will need to go to [place] for both surgerys has a good attitude Time spent with patient 10 mins
--- NOTE | 2022-07-07 15:28 | PC.NURSE ---
notified dr janina cervantes regarding pt's Rx [facility] after trying our very best. finally got ahold of dr cervantes to write us a prescription instead of the print. he came this afternoon and handed the pt his Rx.
== END 2022-07-07 11:31 | disposition home or self-care (01) ==
LOC: MEDSURG 18:33
PROVIDERS: Admitting Provider Internal Medicine; PCP Family Medicine; Visit Provider Internal Medicine
DX: I74.5 Embolism and thrombosis of iliac artery (principal); E11.52 Type 2 diabetes mellitus with diabetic peripheral angiopathy with gangrene; I10 Essential (primary) hypertension; F17.210 Nicotine dependence, cigarettes, uncomplicated; L97.518 Non-pressure chronic ulcer of other part of right foot with other specified severity; E78.5 Hyperlipidemia, unspecified
CPT/HCPCS: 36415; 75625; 75716; 80053; 85049; 85730; 94760; 96360; 99152; 99153; C1769; C1887; C1894; G0378; J0360; J1644; J2250; J3010; J3490; J7030; Q0163; Q9967

== ENCOUNTER → 2022-07-13 12:04 | Outpatient (BNVA) | payer BC, SELFPAY | PROVIDERS: PCP Family Medicine; Visit Provider Nurse Practitioner Family | DX: E11.51 Type 2 diabetes mellitus with diabetic peripheral angiopathy without gangrene (principal) | CPT/HCPCS: 36415; 80048; 83036 ==

== ENCOUNTER 2023-11-18 13:17 | Emergency (ER) | payer MEDICARE, OTHER, SELFPAY ==
[2023-11-18] VITALS (10 sets, daily range): BP systolic 126–152; BP diastolic 59–78; PULSE 71–79; RESP 16–18; TEMP 36.8; O2SAT 86–95; BMI 29.1
--- NOTE | 2023-11-18 13:19 | XRR_ITS ---
PROCEDURE INFORMATION: Exam: XR Chest Exam date and time: 11/18/2023 1:53 PM Age: 63 years old Clinical indication: Pain; Chest pressure; Additional info: Cp TECHNIQUE: Imaging protocol: Radiologic exam of the chest. Views: 1 view. COMPARISON: CR XR chest 1V portable [id number] 01/22/2022 3:14 AM FINDINGS: Lungs: Unremarkable. No consolidation. Pleural spaces: Unremarkable. No pleural effusion. No pneumothorax. Heart/Mediastinum: Unremarkable. No cardiomegaly. Bones/joints: Unremarkable. XR/XR chest 1V portable [id number] IMPRESSION: No acute findings.
--- NOTE | 2023-11-18 14:04 | W.ED.DIZZY ---
HPI - Dizziness General: Chief Complaint: Dizziness Stated Complaint: cough and congestion Time Seen by Provider: 11/18/23 13:49 Source: patient Mode of arrival: ambulatory Limitations: no limitations History of Present Illness: HPI Narrative: 63-year-old female states over the last 3 days she has been having cough congestion along with some wheezing states she has had some generalized weakness as well and dyspnea. She has been having bloody noses she is a longtime smoker has a history of COPD she has no known sick contacts. Denies any worsening proving factors. Associated symptoms: Reports nasal congestion; Denies chest pain, chills, headache(s), nausea or vomiting Review of Systems Const: Reports: fatigue; Denies: fever(s), chills, body aches or change in appetite Eyes: Denies: eye discomfort ENMT: Reports: throat pain and nasal congestion; Denies: dental pain Card: Denies: chest pain Resp: Reports: dyspnea, non-productive cough and wheezing GI: Denies: abdominal pain, nausea, vomiting or diarrhea : Denies: dysuria Musc: Denies: neck pain or back pain Skin/Breast: Denies: rash Neuro: Denies: headache(s) PFSH ED PFSH: Medical History Smoking PVD (peripheral vascular disease) Bilateral hand pain Essential (primary) hypertension Hyperlipidemia, unspecified Chronic pain syndrome Insomnia, unspecified Tobacco use Peripheral neuropathy, idiopathic Chronic left upper quadrant pain Chronic right lower quadrant pain Surgical History S/P shoulder surgery LEFT X2 RIGHT X1 H/O oophorectomy S/P knee surgery LEFT Family History Mother Diabetes Anesthesia complication Hypertension Brother Diabetes Cancer LUNG AND KIDNEY Father Cancer Social History Smoking and tobacco/nicotine status: current every day tobacco/nicotine user cigarettes Packs smoked per day: 1 Quit status (tobacco/nicotine): considering quitting Second hand smoke exposure: No Alcohol intake: never Substance/Drug Use: never Physical Exam Const: COMMON NORMALS: patient oriented x3 HENMT: COMMON NORMALS: normocephalic and atraumatic HEAD & SCALP: normocephalic and atraumatic Eye: COMMON NORMALS: Equal, round and reactive pupils present and EOMs intact bilaterally PUPIL: Yes Equal, round and reactive pupils present Neck/C-Spine: COMMON NORMALS: full ROM and supple Chest: COMMONS NORMALS: normal inspection of the chest and normal palpation of entire chest wall Resp: COMMON NORMALS: normal respiratory effort, No retractions and No use of accessory muscles AUSCULTATION: wheezes Cardio: COMMON NORMALS: regular rate, regular rhythm and No murmurs present (Cardio) RATE: regular rate RHYTHM: regular rhythm GI: COMMON NORMALS: Normal to inspection, nondistended, normoactive bowel sounds present, Soft to palpation, non-tender and no masses PALPATION: Yes Soft to palpation Extremity: COMMON NORMALS: normal to inspection and full ROM Neuro: COMMON NORMALS: patient oriented x3, moves all extremities and no focal motor deficits Psych: COMMON NORMALS: mental status grossly normal, Normal thought process present and cooperative THOUGHT PROCESS: Normal thought process present Skin: COMMON NORMALS: no rashes or lesions noted and no wounds GENERAL SKIN EXAM: no rashes or lesions noted Course Vital Signs: Vital signs: Vital Signs Temperature 98.2 F 11/18/23 13:43 Pulse Rate 75 11/18/23 16:00 Respiratory Rate 18 11/18/23 14:21 Blood Pressure 144/65 11/18/23 16:00 Pulse Oximetry 87 L 11/18/23 16:49 Oxygen Delivery Me thod Nasal Cannula 11/18/23 16:00 Oxygen Flow Rate 3 11/18/23 16:00 MDM - Dizziness Medical Decision Making Patient presents for shortness of breath likely COPD exacerbation she is a longtime smoker she has no signs of pneumonia blood work here is normal she is hypoxic did have a home O2 eval we will send her home on home oxygen along with steroids along with inhaler. Will get her follow-up with pulmonology she is return if worsening she understands agrees to plan. Medical Records I reviewed the patient's medical records. Lab Data I reviewed the patient's lab results. 11/18/23 15:39 11/18/23 15:39 Radiology Impressions Chest X-Ray 11/18/23 13:19 IMPRESSION: No acute findings. Laboratory Results WBC 10.90 10^3/uL (3.29-11.43) 11/18/23 15:39 RBC 4.33 10^6/uL (3.85-5.65) 11/18/23 15:39 Hgb 12.50 g/dL (11.27-16.99) 11/18/23 15:39 Hct 38.6 % (36-47) 11/18/23 15:39 MCV 89.1 fl (85-98) 11/18/23 15:39 MCH 28.9 pg (27-33) 11/18/23 15:39 MCHC 32.4 g/dL (30-55) 11/18/23 15:39 RDW 13.2 % (12.1-15.1) 11/18/23 15:39 Plt Count 303 10^3/cmm (157-399) 11/18/23 15:39 MPV 9.5 fL (7.4-10.4) 11/18/23 15:39 Neut % (Auto) 71.4 % 11/18/23 15:39 Lymph % (Auto) 18.3 % 11/18/23 15:39 [place] % (Auto) 8.4 % 11/18/23 15:39 Eos % (Auto) 1.0 % 11/18/23 15:39 Baso % (Auto) 0.4 % 11/18/23 15:39 Neut # (Auto) 7.78 10^3/uL (1.8-7.7) H 11/18/23 15:39 Lymph # (Auto) 2.0 10^3/uL (0.8-4.8) 11/18/23 15:39 [place] # (Auto) 0.9 10^3/uL (0.2-0.9) 11/18/23 15:39 Eos # (Auto) 0.1 10^3/uL (0.0-0.8) 11/18/23 15:39 Baso # (Auto) 0.0 10^3/uL (0.0-0.1) 11/18/23 15:39 Nucleated RBC % (auto) 0 % 11/18/23 15:39 Nucleated RBCs # 0.0 /100WBC 11/18/23 15:39 Sodium 138 mmol/L (136-145) 11/18/23 15:39 Potassium 3.9 mmol/L (3.5-5.1) 11/18/23 15:39 Chloride 102 mmol/L (98-107) 11/18/23 15:39 Carbon Dioxide 23 mmol/L (22-29) 11/18/23 15:39 Anion Gap 16.9 (5-19) 11/18/23 15:39 BUN 9 mg/dL (8-23) 11/18/23 15:39 Creatinine 0.5 mg/dL (0.5-0.9) 11/18/23 15:39 GFR Calculation 124.2 mL/min (90-130) 11/18/23 15:39 Glucose 109 mg/dL (65-115) 11/18/23 15:39 Calculated Osmolality 285 mOsm/kg (285-295) 11/18/23 15:39 Calcium 9.1 mg/dL (8.5-10.5) 11/18/23 15:39 Total Bilirubin 0.3 mg/dL (0.15-1.2) 11/18/23 15:39 AST 15 U/L (0-32) 11/18/23 15:39 ALT 15 U/L (0-33) 11/18/23 15:39 Alkaline Phosphatase 121 U/L (35-105) H 11/18/23 15:39 NT-Pro-B Natriuret Pep 971 pg/mL (0-125) H 11/18/23 15:39 Total Protein 7.3 g/dL (6.6-8.7) 11/18/23 15:39 Albumin 3.6 g/dL (3.5-5.2) 11/18/23 15:39 Globulin 3.7 g/dL (1.3-4.6) 11/18/23 15:39 Influenza Type A Ag negative (Negative) 11/18/23 14:39 Influenza Type B Ag negative (Negative) 11/18/23 14:39 SARS-CoV-2 Ag (Rapid) Negative (Negative) 11/18/23 14:39 All radiology interpretation(s) finalized by discharge Discharge Plan Discharge Patient Disposition: Home Clinical Impression: Acute exacerbation of chronic obstructive pulmonary disease Condition: Stable Prescriptions: New albuterol sulfate 2.5 mg /3 mL (0.083 %) solution for nebulization 2.5 mg INHALATION Q4H PRN (Reason: shortness of breath or wheezing) Qty: 90 0RF prednisone 50 mg tablet 50 mg PO DAILY Qty: 5 0RF albuterol sulfate 2.5 mg /3 mL (0.083 %) solution for nebulization 2.5 mg INHALATION Q4H PRN (Reason: shortness of breath or wheezing) Qty: 90 0RF prednisone 50 mg tablet 50 mg PO DAILY Qty: 5 0RF No Action fenofibrate nanocrystallized 145 mg tablet 145 mg PO DAILY baclofen 20 mg tablet 20 mg PO TID alprazolam 0.5 mg tablet 0.25 mg PO TID PRN (Reason: Anxiety) 3 Days Qty: 9 0RF hydrochlorothiazide 25 mg tablet 25 mg PO DAILY losartan 100 mg tablet 100 mg PO DAILY diclofenac sodium 50 mg tablet,delayed release (DR/EC) 50 mg PO Q12H PRN (Reason: pain) Qty: 20 0RF bupropion HCl 100 mg tablet sustained-release 12 hr 100 mg PO BID acetaminophen 325 mg Tablet 650 mg PO Q6H PRN (Reason: Mild/Mod Pain Or Temp >/= 101) Qty: 100 0RF amlodipine 10 mg Tablet 10 mg PO DAILY Qty: 30 0RF metoprolol tartrate 50 mg Tablet 50 mg PO BID@0900,2100 Qty: 60 0RF aspirin 81 mg tablet,delayed release (DR/EC) 81 mg PO DAILY Qty: 90 3RF Plavix 75 mg tablet 75 mg PO DAILY Qty: 90 3RF oxycodone 5 mg tablet 5 mg PO Q4H PRN (Reason: pain) Qty: 30 0RF Discharge Orders: Discharge ED (Routine); Ordered 11/18/23 Ordered By: Bebe Lyon Other Ambulatory Orders: DME: Oxygen (Order) Location: None Selected Ordered By: Bebe Lyon Referrals: AmericarJhonny MD [Physician] - 1-3 days Tracey Mariano DO [Primary Care Provider] - Discharge Diet: Advance as tolerated Discharge Activity: Resume usual activity Patient Instructions: COPD (Chronic Obstructive Pulmonary Disease) (ED) Coding Level of Care Code ED Costume Specialist for Lázaro De La Fuente
[2023-11-18] MEDS: albuterol 2.5 mg/3 mL Neb INHALATION (14:23)
[2023-11-18] MEDS: ipratropium-albuterol 3 mL Neb INHALATION (14:23)
[2023-11-18] MEDS: methylPREDNISolone sod succ 125 mg/2 mL INJ IV (15:05)
[2023-11-18 15:19] LABS: Influenza A by IFA negative (Negative); Influenza B by IFA negative (Negative)
[2023-11-18 15:26] LABS: SARS Covid-2 Antigen Negative (Negative)
[2023-11-18 15:54] LABS: Basophils % 0.4 %; Eosinophils # 0.1 10^3/uL (0.0-0.8); Hematocrit 38.6 % (36-47); Lymphocytes % 18.3 %; Mean Corpuscular HGB Conc 32.4 g/dL (30-55); Mean Corpuscular Hemoglobin 28.9 pg (27-33); Mean Corpuscular Volume 89.1 fl (85-98); Mean Platelet Volume 9.5 fL (7.4-10.4); Monocytes # 0.9 10^3/uL (0.2-0.9); Monocytes % 8.4 %; Neutrophils # 7.78 10^3/uL (1.8-7.7); Neutrophils % 71.4 %; Nucleated Red Blood Cells % 0 %; Platelet Count 303 10^3/cmm (157-399); Red Blood Count 4.33 10^6/uL (3.85-5.65); Red Cell Distribution Width 13.2 % (12.1-15.1)
[2023-11-18 16:29] LABS: Alanine Aminotransferase 15 U/L (0-33); Albumin Level 3.6 g/dL (3.5-5.2); Alkaline Phosphatase 121 U/L (35-105); Anion Gap 16.9 (5-19); Aspartate Amino Transferase 15 U/L (0-32); Blood Urea Nitrogen 9 mg/dL (8-23); Calcium 9.1 mg/dL (8.5-10.5); Carbon Dioxide 23 mmol/L (22-29); Chloride 102 mmol/L (98-107); Globulin 3.7 g/dL (1.3-4.6); Glomerular Filtration Rate 124.2 mL/min (90-130); Glucose 109 mg/dL (65-115); NT Pro B Type Natriuretic Pept 971 pg/mL (0-125); Osmolality Calculated 285 mOsm/kg (285-295); Potassium 3.9 mmol/L (3.5-5.1); Sodium 138 mmol/L (136-145); Total Bilirubin 0.3 mg/dL (0.15-1.2); Total Protein 7.3 g/dL (6.6-8.7)
--- NOTE | 2023-11-22 08:15 | DCPLANNER ---
Message sent to Pulm office for follow up on COPD
== END 2023-11-18 19:07 | disposition home or self-care (01) ==
PROVIDERS: Emergency Provider Emergency Medicine; PCP Family Medicine
DX: J44.1 Chronic obstructive pulmonary disease with (acute) exacerbation (principal); Z79.82 Long term (current) use of aspirin; Z79.02 Long term (current) use of antithrombotics/antiplatelets; Z11.52 Encounter for screening for COVID-19; I10 Essential (primary) hypertension; E78.5 Hyperlipidemia, unspecified; F17.210 Nicotine dependence, cigarettes, uncomplicated
CPT/HCPCS: 36415; 71045; 80053; 83880; 85025; 87426; 87804; 94640; 96374; 99284; J2930; J7613

== ENCOUNTER → 2023-12-07 17:35 | Outpatient (BNVA) | payer MEDICARE, OTHER, SELFPAY | PROVIDERS: PCP Family Medicine; Visit Provider Emergency Medicine | DX: B34.9 Viral infection, unspecified (principal); R09.02 Hypoxemia | CPT/HCPCS: 71046; 87400; 87420; 87426 ==

== ENCOUNTER 2024-02-29 08:02 | Outpatient (CLI) | payer MEDICARE, OTHER, SELFPAY ==
[2024-02-29 08:29] VITALS: PULSE 68; RESP 18; O2SAT 96
[2024-02-29] MEDS: albuterol 2.5 mg/3 mL Neb INHALATION (08:29)
[2024-02-29 08:33] VITALS: PULSE 70
== END 2024-02-29 08:03 | disposition home or self-care (01) ==
LOC: RT 08:05
PROVIDERS: PCP Family Medicine; Visit Provider Internal Medicine Pulmonary Disease
DX: R06.02 Shortness of breath (principal); Z09 Encounter for follow-up examination after completed treatment for conditions other than malignant neoplasm; J44.9 Chronic obstructive pulmonary disease, unspecified; Z12.2 Encounter for screening for malignant neoplasm of respiratory organs; Z71.6 Tobacco abuse counseling; K43.9 Ventral hernia without obstruction or gangrene
CPT/HCPCS: 94060; 94618; 94726; 94729; 99204; J7613

== ENCOUNTER 2024-02-29 13:53 | Outpatient (CLI) | payer MEDICARE, OTHER, SELFPAY ==
--- NOTE | 2024-02-29 13:59 | CT_ITS ---
WS: [id number] LDCT LUNG CANCER SCREENING HISTORY: Cancer Screen TECHNIQUE: Axial imaging performed from the apices to 1 cm below the costophrenic angles. Coronal and sagittal reformats are submitted with axial MIP series. All CT scans at [facility] use at least one of these dose optimization techniques: automated exposure control; mA and/or kV adjustment per patient size (includes targeted exams where dose is matched to clinical indication); or iterativ e reconstruction. DLP: 81.81 mGy.cm DIvol: Mean CTDIvol: 1.70 (mGy) COMPARISON: None available. Diagnostic quality: Satisfactory Lungs: Hyperexpanded lungs. Mild chronic emphysema. No pulmonary mass or nodule. Areas of scarring an d linear atelectasis in the lower lung [place]. There is mild pleural thickening at the LEFT lung base . No endobronchial lesions. Heart: Normal size heart with no pericardial effusion.. Other findings: Mild atherosclerosis thoracic aorta. No aneurysm. Pulmonary artery is very mildly dil ated as compared to the aorta. No mediastinal or hilar adenopathy. Stable 11 mm LEFT adrenal nodule. No change since 2016. There is also very mild thickening of the RIGHT adrenal gland. Noncontrast imag ing of the liver is negative. Suprarenal aortic calcification. There is a large LEFT lateral abdomina l wall hernia. Herniating colon through the hernia orifice. No obstruction. IMPRESSION: CT/CT lung screening [id number] LUNG-RADS: 1S-Negative with Significant Findings FOLLOW UP: 12 Month: Continue annual screening with LDCT OTHER FINDINGS (S MODIFIER): Large LEFT lateral abdominal wall hernia containin g colon.
== END 2024-02-29 13:54 | disposition home or self-care (01) ==
LOC: RAD 13:53
PROVIDERS: PCP Family Medicine; Visit Provider Internal Medicine Pulmonary Disease
DX: F17.210 Nicotine dependence, cigarettes, uncomplicated (principal); Z12.2 Encounter for screening for malignant neoplasm of respiratory organs
CPT/HCPCS: 71271

== ENCOUNTER 2024-03-11 16:00 | Outpatient (CLI) | payer MEDICARE, OTHER, SELFPAY | END 2024-03-11 16:01 | disposition home or self-care (01) | LOC: SLEEP 03-12 16:31 | PROVIDERS: PCP Family Medicine; Visit Provider Internal Medicine Pulmonary Disease | DX: G47.33 Obstructive sleep apnea (adult) (pediatric) (principal) | CPT/HCPCS: 94762 ==

== ENCOUNTER → 2024-03-21 13:31 | Outpatient (BNVA) | payer MEDICARE, OTHER, SELFPAY | PROVIDERS: PCP Family Medicine; Visit Provider Internal Medicine Pulmonary Disease | DX: Z01.811 Encounter for preprocedural respiratory examination (principal); J44.9 Chronic obstructive pulmonary disease, unspecified; K43.9 Ventral hernia without obstruction or gangrene; Z87.891 Personal history of nicotine dependence | CPT/HCPCS: 99214 ==